=== PATIENT | male | born 1965 | race Caucasian/White ===

== ENCOUNTER 2016-02-26 18:52 | Inpatient (IN) | payer MEDICARE, MEDICAID ==
[2016-02-26] MEDS ORDERED: IPRATROPIUM/ALBUTEROL 3 ML VIAL NEB ONE ×2 (19:21→20:32)
--- NOTE | 2016-02-26 19:57 | RAD ---
EXAM DESCRIPTION: XR CHEST 1 VIEW CLINICAL HISTORY: chest pain/sob COMPARISON: May 14, 2015. FINDINGS: Cardiac silhouette is within normal limits. EKG leads project over the chest. Mild peribronchial cuffing, similar findings were noted in the prior exam. There is no focal parenchymal or pleural disease. There is no acute osseous process visualized. IMPRESSION: Mild peribronchial cuffing could be secondary to reactive airway disease/ bronchitis changes of unknown chronicity. Please correlate. Electronically signed by: David Gupta 02/26/2016 19:54
[2016-02-26] MEDS ORDERED: methylPREDNISolone SODIUM SUC 125 MG/2 ML VIAL IV ONE (20:09)
[2016-02-26] MEDS ORDERED: MORPHINE SULFATE INJ 10 MG/ML VIAL IV ONE (21:49)
[2016-02-26] MEDS ORDERED: diphenhydrAMINE HCL 50 MG/ML VIAL IV ONE (21:50)
--- NOTE | 2016-02-26 23:39 | ED.PDOC ---
History of Present Illness - General Chief Complaint: Chest Pain/HI Stated Complaint: chest pain due to cough Time Seen by Provider: 02/26/16 19:20 Source: patient, RN notes reviewed, Vital Signs reviewed Exam Limitations: no limitations - History of Present Illness Initial Comments: Patient is a 50 y/o male who has had increasing shortness of breath over the past 2 weeks. He has been seen by his PCP and in the ED about 4 times during this time. He has been on antibiotics since seeing his PCP. His chest pain started today. It worsens with inspiration, especially deep breaths. It is a sharp pain that is worse in the epigastric area and goes across his lower chest. He denies any nausea or diaphoresis. He has dizziness and severe anxiety. Today, he started feeling numbness in his left arm which scared him and he decided to come in to the ED. Timing/Duration: getting worse, other - 2 weeks Severity/Quality: severe, sharp Location: epigastric Chest Pain Radiation: arms Activities at Onset: none Prior Chest Pain/Cardiac Workup: heart attack Improving Factors: nothing Worsening Factors: other - inspiration Nitro Today/Relief: no nitro taken today Aspirin Treatment Today: no aspirin today Associated Symptoms: shortness of breath Allergies/Adverse Reactions: Allergies Sulfamethoxazole w/Trimethoprim [From Bactrim] Allergy (Verified 07/20/15 21:44) Tramadol Allergy (Verified 07/20/15 21:44) Penicillin G Adverse Reaction (Verified 07/20/15 21:44) Sulfa Antibiotics Adverse Reaction (Verified 07/20/15 21:44) Home Medications: Ambulatory Orders Lisinopril 10 mg PO DAILY 01/05/15 Metformin HCl 1,000 mg PO BID 01/05/15 Metoprolol Tartrate 25 mg PO BID 01/05/15 Aspirin [Baby Aspirin] 81 mg PO DAILY 02/25/15 Insulin Detemir [Levemir] 40 unit SUBCU BID 02/25/15 Benzonatate Perles [Tessalon Perles] 100 mg PO Q8HR #30 cap 02/25/16 HYDROcodone 5MG/APAP 325MG [[place] 5/325] 02/25/16 Atorvastatin Calcium [Lipitor] 20 mg PO DAILY 02/26/16 Azithromycin 250 mg PO DAILY 02/26/16 Review of Systems - Review of Systems Constitutional: States: weakness EENTM: States: no symptoms reported Respiratory: States: cough, orthopnea, short of breath, wheezing Cardiology: States: chest pain Gastrointestinal/Abdominal: States: no symptoms reported Genitourinary: States: no symptoms reported Musculoskeletal: States: no symptoms reported Skin: States: no symptoms reported Neurological: States: anxiety, numbness, tingling Endocrine: States: no symptoms reported Hematologic/Lymphatic: States: no symptoms reported Past Medical History (General) - Patient Medical History Hx Seizures: No Hx Stroke: No Hx Dementia: No Hx Asthma: No Hx of COPD: Yes Hx Cardiac Disorders: Yes - HI x 2; cardiac stent 2014 Hx Congestive Heart Failure: No Hx Pacemaker: No Hx Hypertension: Yes Hx Thyroid Disease: No Hx Diabetes: Yes Hx Gastroesophageal Reflux: No Hx Renal Disease: No Hx Cancer: No Hx of HIV: No Hx Hepatitis C: No Hx MRSA: No - Vaccination History Hx Tetanus, Diphtheria Vaccination: Yes Hx Influenza Vaccination: Yes - 2015 Hx Pneumococcal Vaccination: Yes - 2016 - Social History Hx Tobacco Use: Yes Hx Chewing Tobacco Use: No Hx Alcohol Use: Yes Hx Substance Use: No Hx Substance Use Treatment: No Hx Depression: No Hx Physical Abuse: No Hx Emotional Abuse: No Hx Suspected Abuse: No Family Medical History - Family History Father Family History: Unknown Living Status: Unknown Physical Exam - Physical Exam General Appearance: Alert, Anxious, Obvious distress, Obese, Restless Eyes, Ears, Nose, Throat Exam: normal ENT inspection Respiratory: chest non-tender, rhonchi, wheezing Cardiovascular/Chest: regular rate, rhythm, no gallop, no murmur Gastrointestinal/Abdominal: normal bowel sounds, non tender, soft, no organomegaly Extremity: normal range of motion Neurologic: alert, oriented x 3 Skin Exam: normal color, warm/dry Progress - Progress Progress: 02/26/16 23:44 Although Patient's chest pain and shortness of breath subsided, he was unable to maintain his oxygen saturation above 90% without oxygen. Patient has sleep apnea and has had his sleep studies, and is currently waiting for his cpap machine, which he does not have. When sitting on the edge of the bed talking, he talks in short sentences and takes deep breaths between them. After his DuoNeb and the solumedrol, Patient's lungs have increased air movement with less wheezing and rhonchi. - Results/Orders Results/Orders: 12/02/26/16 02/26/16 19:18 19:22 20:08 Temperature 99.1 F Pulse Rate 105 H 95 H Pulse Rate [ 105 H 105 H 102 H left] Respiratory 22 22 22 Rate Blood Pressure 142/113 135/73 [left] O2 Sat by Pulse 95 94 L Oximetry 02/26/16 02/26/16 02/26/16 20:47 21:25 22:15 Temperature 98.9 F Pulse Rate 95 H 95 H 95 H Pulse Rate [ 83 83 left] Respiratory 22 22 22 Rate Blood Pressure 136/73 157/97 [left] O2 Sat by Pulse 93 L 94 L 93 L Oximetry 02/26/16 23:41 Temperature 98.9 F Pulse Rate 95 H Pulse Rate [ 88 left] Respiratory 22 Rate Blood Pressure 149/87 [left] O2 Sat by Pulse 90 L Oximetry Laboratory Results WBC 6.0 K/mm3 (4.8-10.8) 02/26/16 19: RBC 4.79 M/mm3 (4.70-6.10) 02/26/16 19:29 Hgb 13.9 gm/dL (14.0-18.0) L 02/26/16 19:29 Hct 41.9 % (42.0-52.0) L 02/26/16 19:29 MCV 87.3 fl (80.0-94.0) 02/26/16 19: MCH 29.0 pg (27.0-31.0) 02/26/16 19: MCHC 33.1 g/dL (33.0-37.0) 02/26/16 19: RDW 14.1 % (11.5-14.5) 02/26/16 19:29 Plt Count 224 K/mm3 (130-400) 02/26/16 19:29 MPV 9.7 fl (7.40-10.4) 02/26/16 19:29 Absolute Neuts (auto) 3.20 K/uL (1.8-6.8) 02/26/16 19:29 Absolute Lymphs (auto) 2.10 K/uL (1.0-3.4) 02/26/16 19: Absolute Monos (auto) 0.60 K/uL (0.2-0.8) 02/26/16 19:29 Absolute Eos (auto) 0.10 K/uL (0.0-0.4) 02/26/16 19:29 Absolute Basos (auto) 0.00 K/uL (0.0-0.1) 02/26/16 19:29 Neutrophils % 53.8 % (42.0-78.0) 02/26/16 19:29 Lymphocytes % 34.6 % (20.0-50.0) 02/26/16 19: Monocytes % 10.4 % (2.0-9.0) H 02/26/16 19: Eosinophils % 1.1 % (1.0-5.0) 02/26/16 19: Basophils % 0.1 % (0.0-2.0) 02/26/16 19:29 Differential Comment Cancelled 02/26/16 19:29 RBC Morphology Cancelled 02/26/16 19:29 PT 10.4 SECONDS (9.4-12.5) 02/26/16 19:29 INR 0.920 02/26/16 19:29 PTT (SP) 31.8 SECONDS (25.1-36.5) 02/26/16 19:29 D-Dimer, Quantitative < 230 ng/mL (0-230) 02/26/16 19:29 Sodium 134 mmol/L (135-145) L 02/26/16 19:29 Potassium 4.2 mmol/L (3.6-5.0) 02/26/16 19:29 Chloride 99 mmol/L (101-111) L 02/26/16 19:29 Carbon Dioxide 31 mmol/L (21-31) 02/26/16 19:29 Anion Gap 8.2 (12-18) L 02/26/16 19:29 BUN 13 mg/dL (7-18) 02/26/16 19:29 Creatinine 0.88 mg/dL (0.6-1.3) 02/26/16 19:29 BUN/Creatinine Ratio 14.8 (10-20) 02/26/16 19:29 Random Glucose 261 mg/dL (70-105) H 02/26/16 19:29 Serum Osmolality 277.4 mOsm/L (275-295) 02/26/16 19:29 Calcium 8.7 mg/dL (8.4-10.2) 02/26/16 19:29 Magnesium 2.0 mg/dL (1.8-2.5) 02/26/16 19:29 Total Bilirubin 0.4 mg/dL (0.2-1.0) 02/26/16 19:29 AST 23 IU/L (10-42) 02/26/16 19:29 ALT 29 IU/L (10-60) 02/26/16 19:29 Alkaline Phosphatase 118 IU/L (42-121) 02/26/16 19:29 Creatine Kinase 140 IU/L (38-174) 02/26/16 19:29 CK-MB (CK-2) 3.2 ng/mL (0.0-4.4) 02/26/16 19:29 CK-MB (CK-2) % Not Reportable 02/26/16 19:29 Troponin I < 0.02 ng/mL (0.01-0.05) 02/26/16 19: B-Natriuretic Peptide 32.7 pg/ml (0-100) 02/26/16 19:29 Serum Total Protein 7.0 gm/dL (6.4-8.2) 02/26/16 19:29 Albumin 3.7 g/dl (3.2-5.5) 02/26/16 19: Globulin 3.3 gm/dL (2.3-3.5) 02/26/16 19:29 Albumin/Globulin Ratio 1.1 (1.1-1.9) 02/26/16 19:29 Urine Color Yellow (Yellow) 02/26/16 20:30 Urine Appearance Clear (Clear) 02/26/16 20:30 Urine pH 5.5 (4.5-7.8) 02/26/16 20:30 Ur Specific [place] 1.015 (1.005-1.030) 02/26/16 20:30 Urine Protein Negative mg/dL 02/26/16 20:30 Urine Glucose (UA) 500 mg/dL (Negative) H 02/26/16 20:30 Urine Ketones Negative mg/dL (NEGATIVE) 02/26/16 20:30 Urine Blood Negative (Negative) 02/26/16 20:30 Urine Nitrite Negative 02/26/16 20:30 Urine Bilirubin Negative (NEGATIVE) 02/26/16 20:30 Urine Urobilinogen 0.2 mg/dL (0.2-1.0) 02/26/16 20:30 Ur Leukocyte Esterase Negative (Negative) 02/26/16 20:30 Urine RBC 0 /hpf 02/26/16 20:30 Urine WBC 0-1 /hpf 02/26/16 20:30 Ur Epithelial Cells 5-10 /hpf 02/26/16 20:30 Urine Bacteria 0 02/26/16 20:30 - EKG/XRAY/CT EKG: Sinus, Tachy, no ST T wave changes Comments: Rate: 104 [place] NML Intervals: NML PVCs No comp Inter: Sinus tach with PVCs XRAY: chest Xray Comments: No acute process Departure - Departure Clinical Impression: COPD exacerbation, Hypoxemia requiring supplemental oxygen Acute bronchitis Qualifiers: Bronchitis organism: unspecified organism Qualifier Code: (J20.9) Acute bronchitis, unspecified Time of Disposition: 23:49 Disposition: Admit Patient Condition: Good Diet: diabetic diet Home Medications: Ambulatory Orders Lisinopril 10 mg PO DAILY 01/05/15 Metformin HCl 1,000 mg PO BID 01/05/15 Metoprolol Tartrate 25 mg PO BID 01/05/15 Aspirin [Baby Aspirin] 81 mg PO DAILY 02/25/15 Insulin Detemir [Levemir] 40 unit SUBCU BID 02/25/15 Benzonatate Perles [Tessalon Perles] 100 mg PO Q8HR #30 cap 02/25/16 HYDROcodone 5MG/APAP 325MG [[place] 5/325] 02/25/16 Atorvastatin Calcium [Lipitor] 20 mg PO DAILY 02/26/16 Azithromycin 250 mg PO DAILY 02/26/16 Decision To Admit - Decistion To Admit Decision to Admit Reason: Admit from ER Decision to Admit Date: 02/26/16 Decision to Admit Time: 23:30
[2016-02-26] MEDS ORDERED: IV SET AND CAP CHANGE INJ INJ SCH ×2 (23:45)
[2016-02-26] MEDS ORDERED: SODIUM CHLORIDE 0.9% (FLUSH) 10 ML SYG IV PRN ×2 (23:53→23:57)
[2016-02-26] MEDS ORDERED: LORazepam 0.5 MG TAB PO ONE (23:54)
[2016-02-26] MEDS ORDERED: DEXTROSE 50% 25 GM/50 ML SYG IV PRN (23:57)
[2016-02-26] MEDS ORDERED: MAGNESIUM HYDROXIDE 30 ML UD PO PRN (23:57)
[2016-02-26] MEDS ORDERED: LEVALBUTEROL NEBS 1.25 MG/3 ML VIAL INH PRN (23:57)
[2016-02-26] MEDS ORDERED: GLUCAGON INJ 1 MG VIAL SUBCU PRN (23:57)
[2016-02-27] MEDS ORDERED: BENZONATATE PERLES 100 MG CAP PO PRN (00:09)
--- NOTE | 2016-02-27 00:10 | PCM.CORE ---
Physician DVT/VTE - Prophylaxis Currently: Patient already on anticoagulation therapy
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
[2016-02-27] MEDS ORDERED: ENOXAPARIN SODIUM 40 MG/0.4 ML SYG SUBCU SCH (00:30)
[2016-02-27] MEDS: SODIUM CHLORIDE 0.9% 1000ML 1,000 ML IVS PRN ×2 (00:55→11:11)
[2016-02-27] MEDS ORDERED: NICOTINE PATCH 14 MG TD SCH (03:00)
[2016-02-27] MEDS: OMEPRAZOLE CAP 20 MG CAP PO SCH (06:21)
[2016-02-27] MEDS: IPRATROPIUM/ALBUTEROL 3 ML VIAL INH SCH ×2 (07:22→07:23)
[2016-02-27] MEDS: HYDROcodone 5MG/APAP 325MG 1 EA TAB PO PRN ×2 (07:34→23:25)
[2016-02-27] MEDS: LORazepam 0.5 MG TAB PO PRN ×2 (07:35→22:16)
[2016-02-27] MEDS ORDERED: LISINOPRIL 10 MG TAB ONE (07:56)
[2016-02-27] MEDS ORDERED: metFORMIN HCL 500 MG TAB ONE (07:56)
[2016-02-27] MEDS ORDERED: AZITHROMYCIN 250 MG TAB PO ONE (07:56)
[2016-02-27] MEDS ORDERED: methylPREDNISolone SODIUM SUC 40 MG/ML VIAL ONE (07:56)
[2016-02-27] MEDS ORDERED: INSULIN DETEMIR 100 UNITS/ML PEN SUBCU ONE (07:56)
[2016-02-27] MEDS ORDERED: METOPROLOL TARTRATE 25 MG TAB ONE (07:56)
[2016-02-27] MEDS ORDERED: INSULIN LISPRO 100 UNITS/ML PEN SUBCU ONE (08:03)
[2016-02-27] MEDS: INSULIN LISPRO 100 UNITS/ML PEN SUBCU SCH ×4 (08:13→21:20)
[2016-02-27] MEDS: metFORMIN HCL 500 MG TAB PO SCH ×2 (08:15→16:38)
[2016-02-27] MEDS: LISINOPRIL 10 MG TAB PO SCH (08:16)
[2016-02-27] MEDS: METOPROLOL TARTRATE 25 MG TAB PO SCH ×2 (08:16→16:38)
[2016-02-27] MEDS: AZITHROMYCIN 250 MG TAB PO SCH (08:16)
[2016-02-27] MEDS: methylPREDNISolone SODIUM SUC 40 MG/ML VIAL IV SCH ×2 (08:17→20:45)
[2016-02-27] MEDS: INSULIN DETEMIR 100 UNITS/ML PEN SUBCU SCH ×2 (08:17→21:20)
[2016-02-27] MEDS: guaiFENesin ER TAB 600 MG TAB PO SCH ×2 (10:23→20:44)
[2016-02-27] MEDS: LEVALBUTEROL NEBS 1.25 MG/3 ML VIAL NEB SCH ×2 (12:56→16:37)
[2016-02-27] MEDS ORDERED: SODIUM CHL 0.9% 50ML MIN-BAG+ 50 ML IVPB ONE (20:15)
[2016-02-27] MEDS ORDERED: cefTRIAXone SODIUM 1 GM VIAL ONE (20:15)
[2016-02-27] MEDS: cefTRIAXone SODIUM 1 GM in SODIUM CHL 0.9% 50ML MIN-BAG+ 50 ML IVPB SCH (20:41)
[2016-02-27] MEDS: SODIUM CHLORIDE 0.9% (FLUSH) 10 ML SYG IV SCH (20:44)
[2016-02-27] MEDS ORDERED: METOPROLOL TARTRATE INJ 5 MG/5 ML VIAL IV ONE (22:33)
[2016-02-27] MEDS ORDERED: cloNIDine HCL 0.2 MG TAB PO ONE (22:34)
[2016-02-27] MEDS ORDERED: NICOTINE PATCH 14 MG TD ONE (23:06)
[2016-02-27] MEDS: NICOTINE PATCH 14 MG TD SCH (23:08)
[2016-02-27] MEDS: diphenhydrAMINE HCL 25 MG CAP PO PRN (23:25)
[2016-02-28] MEDS: OMEPRAZOLE CAP 20 MG CAP PO SCH (06:06)
--- NOTE | 2016-02-28 06:49 | RAD ---
EXAM DESCRIPTION: XR CHEST 2 VIEWS CLINICAL HISTORY: 50 y/o M, copd COMPARISON: 02/26/2016 TECHNIQUE: Two views of the chest. FINDINGS: There is mild peribronchial thickening. There is no focal consolidation, pneumothorax, or pleural effusion. The heart is normal in size. The bones are unchanged. IMPRESSION: Mild peribronchial thickening. Electronically signed by: Fran Cota MD 02/28/2016 06:47
[2016-02-28] MEDS: INSULIN LISPRO 100 UNITS/ML PEN SUBCU SCH ×6 (07:40→21:16)
[2016-02-28] MEDS: METOPROLOL TARTRATE 25 MG TAB PO SCH ×2 (07:41→16:51)
[2016-02-28] MEDS: metFORMIN HCL 500 MG TAB PO SCH ×2 (07:41→16:51)
[2016-02-28] MEDS: LEVALBUTEROL NEBS 1.25 MG/3 ML VIAL NEB SCH ×3 (08:50→23:42)
[2016-02-28] MEDS: NICOTINE PATCH 14 MG TD SCH (09:26)
[2016-02-28] MEDS: INSULIN DETEMIR 100 UNITS/ML PEN SUBCU SCH ×2 (09:26→21:15)
[2016-02-28] MEDS: guaiFENesin ER TAB 600 MG TAB PO SCH ×2 (09:27→21:11)
[2016-02-28] MEDS: methylPREDNISolone SODIUM SUC 40 MG/ML VIAL IV SCH ×2 (09:27→21:16)
[2016-02-28] MEDS: ENOXAPARIN SODIUM 40 MG/0.4 ML SYG SUBCU SCH (09:27)
[2016-02-28] MEDS: LISINOPRIL 10 MG TAB PO SCH (09:28)
[2016-02-28] MEDS: AZITHROMYCIN 250 MG TAB PO SCH (09:28)
[2016-02-28] MEDS: SODIUM CHLORIDE 0.9% (FLUSH) 10 ML SYG IV SCH ×2 (09:28→21:17)
[2016-02-28] MEDS: HYDROcodone 5MG/APAP 325MG 1 EA TAB PO PRN (12:50)
--- NOTE | 2016-02-28 19:43 | PN ---
DATE: 02/28/16 SUPERVISING PHYSICIAN: Madan Morillo M.D. SUBJECTIVE: The patient has done better since he has been utilizing BiPAP at night. He actually was able to sleep through the night. I was notified that his pressure was elevated and he was running a temperature of 102 last night, therefore I added additional coverage with Rocephin as well as provided blood pressure control with Clonidine and an additional dose of Metoprolol IV. This morning, he is much less anxious and blood pressure seems to be better controlled. He has been actually ambulating with minimal assistance with ambulation studies shown to be good with initial O2 sat on the first one showing 94% on 2 liters during ambulation on room air decreased to 92 and rebounded to 95% after 1 minute with 2 liters nasal cannula. OBJECTIVE: VITAL SIGNS: T max 102.0, pulse 102, blood pressure 174/118 prior to administration of Clonidine and Toprol after which blood pressure improved to 138/84 with pulse of 85. He is satting 92% on nasal cannula at rest with improvement up to 97% with BiPAP at night. I's and O's show a negative balance of 151 with 3249 in, 3400 out. Weight is 135.1 kg. CHEST: Lungs are much more aerated today compared to previous days. There is no obvious wheezing. He does continue to have a cough and is awaiting sputum for culture. HEART: Regular rate and rhythm. ABDOMEN: Obese but soft, non-tender. Positive bowel sounds. EXTREMITIES: No clubbing, cyanosis or edema. NEUROLOGIC: He is alert and oriented times three but remains quite anxious at times requiring Ativan. LABORATORY: White count is now 13.0, however the patient is on IV Solu-Medrol, but in addition to that he did show a temperature last night of 102. H&H remain stable at 13.4 and 40.4. Differential does continue to show a left shift. Chemistries show low sodium of 134 with potassium being normal at 4.5, BUN 19, creatinine 0.7. Glucoses continue to be elevated in the 300s probably secondary to Solu-Medrol. MICROBIOLOGY: No specimens have been submitted for culture. If he continues to show a temperature, will certainly draw a set of blood cultures and we are still awaiting the sputum culture. RADIOLOGY: Chest x-ray per radiology interpretation today shows mild peribronchial thickening with no focal consolidations or pleural effusions. ASSESSMENT: 1. Acute exacerbation of chronic obstructive pulmonary disease with acute bronchitis having failed to respond to outpatient treatment plan now showing a temperature with concerns for possible underlying pneumonia is likely community acquired requiring additional parenteral antibiotics to include Rocephin along with Azithromycin. 2. History of sleep apnea requiring CPAP at home awaiting CPAP machine from [facility] with current prescription noted to be in the patient's clinic chart written by Dr. Torres on 07/30/15. 3. Hypertension poorly controlled requiring additional management with p.r.n. medications. 4. Type 2 diabetes mellitus poorly controlled with continued need for adjustment of insulin therapy likely contributed to some degree from steroid administration. 5. History of lumbar disc disease, chronic, stable. 6. Morbid obesity. 7. History of tobacco abuse encouraged to stop smoking. 8. Mild hyponatremia persistent likely secondary to underlying bronchitis possibly developing pneumonia. 9. Mild hypoxemia requiring continued O2 at night as he does wear some oxygen at home and does well with BiPAP. PLAN: The patient did show a temperature last night and he was started on additional antibiotics with concerns for possible underlying developing pneumonia. He is doing well with his BiPAP and Ativan is working well for his anxiety. We need continuation of modification of his medications in regard to hypertension with p.r.n. Clonidine has worked well as well as his acute anxiety state contributing to some of his hypertension controlled with Ativan p.r.n. Anticipate possible discharge tomorrow, however the patient does need close followup and guidance in regards to followup with his prescriptions for his CPAP /BiPAP at night. This again has been arranged through Dr. Torres' office with a prescription written on 07/30/15 supposedly sent to [facility] and will need to be followed-up with prior to time of discharge or shortly after discharge to assist the patient with securing a BiPAP. Anticipate maybe discharging tomorrow. Until then, will continue to monitor the patient closely and treat appropriately. #[id number] [facility]
[2016-02-28] MEDS ORDERED: cefTRIAXone SODIUM 1 GM VIAL ONE (19:46)
[2016-02-28] MEDS ORDERED: SODIUM CHL 0.9% 50ML MIN-BAG+ 50 ML IVPB ONE (19:46)
[2016-02-28] MEDS: cefTRIAXone SODIUM 1 GM in SODIUM CHL 0.9% 50ML MIN-BAG+ 50 ML IVPB SCH (20:06)
[2016-02-29] MEDS: diphenhydrAMINE HCL 25 MG CAP PO PRN (00:36)
[2016-02-29] MEDS: HYDROcodone 5MG/APAP 325MG 1 EA TAB PO PRN (00:37)
[2016-02-29] MEDS: LORazepam 0.5 MG TAB PO PRN (00:37)
[2016-02-29] MEDS: OMEPRAZOLE CAP 20 MG CAP PO SCH (06:07)
[2016-02-29] MEDS: INSULIN LISPRO 100 UNITS/ML PEN SUBCU SCH ×4 (07:25→11:39)
[2016-02-29] MEDS: METOPROLOL TARTRATE 25 MG TAB PO SCH (07:40)
[2016-02-29] MEDS: metFORMIN HCL 500 MG TAB PO SCH (07:40)
[2016-02-29] MEDS: LEVALBUTEROL NEBS 1.25 MG/3 ML VIAL NEB SCH (08:42)
[2016-02-29] MEDS: NICOTINE PATCH 14 MG TD SCH (08:42)
[2016-02-29] MEDS: INSULIN DETEMIR 100 UNITS/ML PEN SUBCU SCH (08:43)
[2016-02-29] MEDS: LISINOPRIL 10 MG TAB PO SCH (08:43)
[2016-02-29] MEDS: AZITHROMYCIN 250 MG TAB PO SCH (08:43)
[2016-02-29] MEDS: guaiFENesin ER TAB 600 MG TAB PO SCH (08:43)
[2016-02-29] MEDS: ENOXAPARIN SODIUM 40 MG/0.4 ML SYG SUBCU SCH (08:43)
[2016-02-29] MEDS: methylPREDNISolone SODIUM SUC 40 MG/ML VIAL IV SCH (08:44)
[2016-02-29] MEDS: SODIUM CHLORIDE 0.9% (FLUSH) 10 ML SYG IV SCH (08:44)
[2016-02-29 14:06] VITALS: BP 164/99; TEMP 98.6; O2SAT 94
--- NOTE | 2016-02-29 19:42 | DS ---
DISCHARGE DIAGNOSIS: 1. Chronic obstructive pulmonary disease with an acute exacerbation requiring corticosteroid as well as bronchodilator, pulmonary hygiene and antibiotic use. 2. History of sleep apnea requiring BiPAP with him unable to acquire the BiPAP machine until hopefully they will be able to work on it this next week with followup with Dr. Torres. 3. Hypertension poorly controlled requiring additional medications as needed. 4. Chronic diabetes mellitus type 2 on adjustments of insulin to assist with control with sugar aggravated by corticosteroid administration. 5. History of lumbar disc disease, chronic and stable. 6. Obesity. 7. History of chronic tobacco abuse encouraged to stop completely. 8. Mild hyponatremia. 9. Mild hypoxemia requiring O2 at night with BiPAP supplementation to assist with the work of breathing showing some steady improvement. HISTORY OF PRESENT ILLNESS: This 50 year-old white male is admitted to the hospital from the Emergency Room because of worsening shortness of breath over the last 2 weeks. He has seen Dr. Torres and has been in the Emergency Room at least 4 times in the last couple of weeks, and has failed outpatient therapy. He has been on Azithromycin without significant improvement. He was admitted to the hospital with pain in his epigastric region and generalized malaise. In the Emergency Room, his sodium was low at 132. It was noted that he has had a previous diagnosis of sleep apnea for which a BiPAP machine has been ordered but he has not received it during the last 5 months. He was continued on medication nebulizers, bronchodilators, corticosteroids and had to have his insulin adjusted several times because of hyperglycemic states. LABORATORY: Sodium 134 up to 136 at discharge. BUN 18, creatinine 0.85. Fasting glucose was elevated at 394 on the day of discharge requiring ongoing sliding scale insulin. White count 14,200 with 83% neutrophils, hemoglobin 13.2. INR 0.92, D-dimer low. Urinalysis showed glycosuria, otherwise clear. No cultures. Chest x-ray showed continued findings of peribronchial thickening suggesting a bronchitic COPD pattern requiring ongoing followup as needed. HOSPITAL COURSE: The patient was feeling improved and was ambulating without oxygen on the day of discharge. He was ready and willing to continue with outpatient followup with Dr. Torres' office. PLAN: The patient will be discharged home to see Dr. Torres this next Tuesday. Close followup of blood pressure and glucose as necessary with advice from Dr. Torres on how to best mange the sugar and the blood pressure. We are decreasing his corticosteroids which will hopefully help with some of the glucose level control. See the GI clinic next Tuesday as well for anticipated colonoscopy. Work with [facility] to acquire BiPAP unit for home use. Discussed with them today. Continue with medication nebulizers. Stop all smoking. Use a nicotine patch to help stop smoking. Walk daily. Avoid chills when wet and return to work on , 03/04/16. Return if not improving. #[id number] [facility]
== END 2016-02-29 15:45 | disposition home or self-care (01) | DRG 190 ==
LOC: ER 18:52 → MS 02-27 00:15 → OBSVTOIN 02-27 00:15
PROVIDERS: ADMIT Emergency Medicine; ATTEND Emergency Medicine
DX: J44.0 Chronic obstructive pulmonary disease with (acute) lower respiratory infection (principal); J18.9 Pneumonia, unspecified organism; E87.1 Hypo-osmolality and hyponatremia; J44.1 Chronic obstructive pulmonary disease with (acute) exacerbation; R09.02 Hypoxemia; J20.9 Acute bronchitis, unspecified; G47.30 Sleep apnea, unspecified; I10 Essential (primary) hypertension; E11.65 Type 2 diabetes mellitus with hyperglycemia; F17.210 Nicotine dependence, cigarettes, uncomplicated; E66.01 Morbid (severe) obesity due to excess calories; I25.2 Old myocardial infarction; T38.0X5A Adverse effect of glucocorticoids and synthetic analogues, initial encounter; Y92.230 Patient room in hospital as the place of occurrence of the external cause; Z87.820 Personal history of traumatic brain injury; Z88.3 Allergy status to other anti-infective agents; Z88.6 Allergy status to analgesic agent; Z88.0 Allergy status to penicillin; Z68.39 Body mass index [BMI] 39.0-39.9, adult

== ENCOUNTER 2017-01-31 19:58 | Inpatient (IN) | payer MEDICARE, MEDICAID ==
[2017-01-31] MEDS ORDERED: IPRATROPIUM/ALBUTEROL 3 ML VIAL NEB ONE (20:11)
[2017-01-31] MEDS ORDERED: methylPREDNISolone SODIUM SUC 125 MG/2 ML VIAL IV ONE (20:11)
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
--- NOTE | 2017-01-31 22:12 | RAD ---
EXAM DESCRIPTION: Chest,1 View CLINICAL HISTORY: SOB COMPARISON: None FINDINGS: Cardiac silhouette is within normal limits. EKG leads project over the chest. There is no focal parenchymal or pleural disease. There is no acute osseous process visualized. IMPRESSION: No evidence of acute cardiopulmonary disease. Electronically signed by: David Gupta MD 01/31/2017 10:11 PM [facility]
[2017-01-31] MEDS ORDERED: AZITHROMYCIN IV 500 MG in SODIUM CHLORIDE 0.9% 250ML 250 ML IVPB ONE (22:24)
[2017-01-31] MEDS ORDERED: cefTRIAXone SODIUM 1 GM in SODIUM CHL 0.9% 50ML MIN-BAG+ 50 ML IVPB ONE (22:24)
[2017-01-31] MEDS ORDERED: AZITHROMYCIN IV 500 MG VIAL IVPB ONE (22:58)
[2017-01-31] MEDS ORDERED: cefTRIAXone SODIUM 1 GM VIAL ONE (22:58)
[2017-01-31] MEDS ORDERED: SODIUM CHL 0.9% 50ML MIN-BAG+ 50 ML IVPB ONE (22:58)
[2017-01-31] MEDS ORDERED: SODIUM CHLORIDE 0.9% 250ML 250 ML ONE (22:59)
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
[2017-01-31] MEDS ORDERED: cefTRIAXone SODIUM 2 GM in SODIUM CHL 0.9% 50ML MIN-BAG+ 50 ML IVPB SCH ×4 (23:45)
[2017-01-31] MEDS ORDERED: GLUCAGON INJ 1 MG VIAL SUBCU PRN (23:55)
[2017-01-31] MEDS ORDERED: DEXTROSE 50% 25 GM/50 ML SYG IV PRN (23:55)
[2017-02-01] MEDS: AZITHROMYCIN IV 500 MG in SODIUM CHLORIDE 0.9% 250ML 250 ML IVPB SCH (00:29)
[2017-02-01] MEDS: ALBUTEROL SULFATE 2.5 MG/3 ML VIAL NEB PRN ×2 (01:00→04:35)
[2017-02-01] MEDS: IV SET AND CAP CHANGE INJ INJ SCH (01:04)
[2017-02-01] MEDS ORDERED: SODIUM CHL 0.9% 50ML MIN-BAG+ 50 ML IVPB ONE ×2 (02:08→22:36)
[2017-02-01] MEDS ORDERED: cefTRIAXone SODIUM 1 GM VIAL ONE ×2 (02:08→22:36)
[2017-02-01] MEDS: ACETAMINOPHEN 325 MG TAB PO PRN ×4 (02:12→20:02)
[2017-02-01] MEDS: SODIUM CHLORIDE 0.9% (FLUSH) 10 ML SYG IV PRN ×2 (02:12→20:10)
[2017-02-01] MEDS: methylPREDNISolone SODIUM SUC 125 MG/2 ML VIAL IV SCH ×4 (02:13→20:11)
[2017-02-01] MEDS ORDERED: cefTRIAXone SODIUM 1 GM in SODIUM CHL 0.9% 50ML MIN-BAG+ 50 ML IVPB ONE (02:25)
[2017-02-01] MEDS ORDERED: ALPRAZolam 0.25 MG TAB PO ONE (03:27)
[2017-02-01] MEDS ORDERED: NICOTINE PATCH 14 MG TD SCH (03:30)
--- NOTE | 2017-02-01 07:04 | RAD ---
EXAM: Two view chest. INDICATION: Pneumonia. COMPARISON: Chest x-ray: 01/31/2017. FINDINGS: Cardiac silhouette: Unremarkable. Indu: Unremarkable. Lobar consolidation: None. Pleural effusion: None. Pneumothorax: None. Other: None. Bones: Unremarkable. Other: None. IMPRESSION: 1. No acute cardiopulmonary process. Electronically signed by: Fran Cota MD 02/01/2017 7:03 AM [facility] Workstation: [id number]
[2017-02-01] MEDS: INSULIN LISPRO 100 UNITS/ML PEN SUBCU SCH ×7 (07:43→21:23)
[2017-02-01] MEDS: KCL 20 MEQ/NS 1,000 ML IVS PRN ×2 (07:45→20:02)
[2017-02-01] MEDS: IPRATROPIUM/ALBUTEROL 3 ML VIAL INH SCH ×4 (08:00→20:55)
[2017-02-01] MEDS: INSULIN DETEMIR 100 UNITS/ML PEN SUBCU SCH ×2 (08:45→21:24)
[2017-02-01] MEDS ORDERED: metFORMIN HCL 500 MG TAB ONE (14:08)
[2017-02-01] MEDS ORDERED: glipiZIDE 5 MG TAB ONE (14:08)
[2017-02-01] MEDS ORDERED: MORPHINE SULFATE INJ 10 MG/ML VIAL IV ONE (14:22)
[2017-02-01] MEDS: metFORMIN HCL 500 MG TAB PO SCH (16:39)
[2017-02-01] MEDS: glipiZIDE 5 MG TAB PO SCH (16:39)
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
[2017-02-01] MEDS ORDERED: ENOXAPARIN SODIUM 40 MG/0.4 ML SYG SUBCU SCH (19:30)
--- NOTE | 2017-02-01 19:36 | PN ---
SUPERVISING PHYSICIAN: Madan Morillo MD DATE: 02/01/17 SUBJECTIVE: The patient this morning was having some mild respiratory distress continued and unable to maintain O2 saturations above 85% on a Ventimask. I saw the patient at that time. He was in no significant distress, but was showing much improvement after he was placed on BiPAP, which he was tolerating. He was complaining of chest discomfort with a cough, but no actual chest pains. He is afebrile with T-max of 99.8. He has had no nausea or vomiting. He has had to have some Ativan for some anxiety which he has responded well to. OBJECTIVE: VITAL SIGNS: T-max 99.8. Pulse 106. Respirations 20 to 24 on nasal cannula. Saturation 90% on a Ventimask at 8 liters at 40%. After placement on BiPAP, he was maintaining 92% to 94% on 50% FIO2. Weight 140.8 kg. CHEST: Lung sounds significantly diminished with some inspiratory and expiratory wheezing. No rhonchi or rales noted. HEART: Regular rate and rhythm. ABDOMEN: Obese, but soft and nontender. Positive bowel sounds. EXTREMITIES: No cyanosis, clubbing or edema. NEUROLOGIC: Alert and oriented times three. LABORATORY: CBC this morning continues to show leukocytosis at 12,700, hemoglobin stable at 13.3 and 40.7 with platelet count 271,000. Differential continues to show a left shift. Blood gas analysis prior to placement on BiPAP with high flow Ventimask showed pH 7.31 with PCO2 54, PO2 46, saturation 77%. After 30 minutes on BiPAP at 50% FIO2, his pH was 7.33, PCO2 53, PCO2 up to 61, saturation 92%. Chemistries showed mild hyponatremia with sodium 134, BUN 14, creatinine 0.93, glucose elevated at 332 secondary to corticosteroid administration. Cardiac enzymes showed troponin less than 0.02, BNP 35. Blood sugars have shown continued elevation between 217 and 332. MICROBIOLOGY: Blood cultures remain negative at 24 hours. Strep culture is pending. RADIOLOGY: Repeat chest x-ray, two view, today per radiologic interpretation showed no acute cardiopulmonary process. ASSESSMENT: 1. Acute exacerbation of chronic obstructive pulmonary disease with concerns for developing community acquired pneumonia having failed to respond to outpatient treatment plan, requiring BIPAP assistance with persistent hypoxemia on Ventimask, showing improvement with BIPAP at 50% FIO2. 2. Respiratory acidosis with severe hypoxemia secondary to exacerbation of chronic obstructive pulmonary disease with blood gases showing improvement after initiation of BIPAP. 3. Concerns for early left lower lobe pneumonia, community acquired, requiring initiation of IV antibiotics to include Rocephin and azithromycin. 4. Chronic tobacco abuse, encouraged to stop smoking. 5. Hypertension, poorly controlled. 6. Type 2 diabetes mellitus, poorly controlled with elevation secondary to corticosteroid administration. 7. Morbid obesity with a body mass index of 41.0. 8. Leukocytosis secondary to #1, persistent with concerns for developing community acquired pneumonia, left lower lobe, requiring initiation of antibiotic therapy. 9. Elevated D-dimer with low risk factor for a pulmonary embolism with continued monitoring. 10. History of sleep apnea utilizing CPAP at night. 11. History of lumbar disc disease, chronic. PLAN: The patient will continue with aggressive pulmonary hygiene. We will continue with BiPAP and work at titrating down to nasal cannula as he shows clinical improvement. We will continue with Solu-Medrol and DuoNeb treatments along with chest percussion therapy. We will continue with his antibiotics with azithromycin and Rocephin and await sputum culture. I have added a.c. coverage for control of his sugars and resumed his metformin and will continue to monitor closely. We will anticipate at least another 24 to 48 hours requirement for continued titration of his O2 requirements. He continues to have encouragement to stop smoking with a nicotine patch. We will await sputum cultures to further target antibiotic therapy and repeat CBC and BMP as well as chest x-ray in the morning. Until the patient is clinically stable and able to bd discharged for further treatment in the outpatient setting, we will continue to monitor the patient closely and treat appropriately. #[id number] [facility]
[2017-02-01] MEDS ORDERED: NICOTINE PATCH 14 MG TD ONE (19:59)
[2017-02-01] MEDS: NICOTINE PATCH 14 MG TD SCH (20:52)
[2017-02-01] MEDS: TEMAZEPAM 15 MG CAP PO PRN (22:28)
[2017-02-01] MEDS ORDERED: SODIUM CHLORIDE 0.9% 250ML 250 ML ONE (22:35)
[2017-02-01] MEDS ORDERED: AZITHROMYCIN IV 500 MG VIAL IVPB ONE (22:36)
[2017-02-01] MEDS: cefTRIAXone SODIUM 2 GM in SODIUM CHL 0.9% 50ML MIN-BAG+ 50 ML IVPB SCH (22:48)
[2017-02-02] MEDS: SODIUM CHLORIDE 0.9% (FLUSH) 10 ML SYG IV PRN (00:03)
[2017-02-02] MEDS: AZITHROMYCIN IV 500 MG in SODIUM CHLORIDE 0.9% 250ML 250 ML IVPB SCH ×2 (00:03→23:53)
[2017-02-02] MEDS: methylPREDNISolone SODIUM SUC 125 MG/2 ML VIAL IV SCH ×3 (02:00→14:12)
[2017-02-02] MEDS: glipiZIDE 5 MG TAB PO SCH ×3 (06:39→17:08)
--- NOTE | 2017-02-02 06:54 | RAD ---
EXAM: Two view chest. INDICATION: COPD. COMPARISON: Chest x-ray: 02/01/2017. FINDINGS: Cardiac silhouette: Unremarkable. Indu: Unremarkable. Lobar consolidation: None. Pleural effusion: None. Pneumothorax: None. Other: None. Bones: Unremarkable. Other: None. IMPRESSION: 1. No acute cardiopulmonary process. Electronically signed by: Fran Cota MD 02/02/2017 6:[address] [facility] Workstation: [id number]
[2017-02-02] MEDS: INSULIN LISPRO 100 UNITS/ML PEN SUBCU SCH ×7 (07:54→21:27)
[2017-02-02] MEDS: metFORMIN HCL 500 MG TAB PO SCH ×2 (08:00→17:08)
[2017-02-02] MEDS: IPRATROPIUM/ALBUTEROL 3 ML VIAL INH SCH ×4 (08:23→19:58)
[2017-02-02] MEDS: ACETAMINOPHEN 325 MG TAB PO PRN (08:55)
[2017-02-02] MEDS ORDERED: traZODone HCL 100 MG TAB PO PRN (09:11)
[2017-02-02] MEDS ORDERED: PROPRANOLOL HCL 10 MG PO PRN (09:11)
[2017-02-02] MEDS: INSULIN DETEMIR 100 UNITS/ML PEN SUBCU SCH ×2 (09:30→21:24)
[2017-02-02] MEDS: ATORVASTATIN 20 MG TAB PO SCH (09:36)
[2017-02-02] MEDS: NON-FORMULARY MEDICATION 1 EA MIS (Sertraline Hcl [Sertraline Hcl] 100 MG) PO SCH (09:36)
[2017-02-02] MEDS: LISINOPRIL 10 MG TAB PO SCH (09:36)
[2017-02-02] MEDS: CITALOPRAM HBR 20 MG TAB PO SCH (09:36)
[2017-02-02] MEDS: ASPIRIN EC 81 MG TAB PO SCH (09:36)
[2017-02-02] MEDS ORDERED: MORPHINE SULFATE INJ 10 MG/ML VIAL ONE (10:25)
[2017-02-02] MEDS: MORPHINE SULFATE INJ 10 MG/ML VIAL IV PRN ×2 (10:29→14:29)
--- NOTE | 2017-02-02 10:55 | PN ---
SUPERVISING PHYSICIAN: Madan Morillo MD DATE: 02/02/17 SUBJECTIVE: The patient feels a little bit better. He is having some chest discomfort with each cough. He states he was able to cough up a sample to send down for analysis. He is currently without distress. OBJECTIVE: VITAL SIGNS: Blood pressure 139/86. Heart rate 100. Respiratory rate 20. Temperature 98.0. Oxygen saturation 93%. GENERAL: Mr. Bahena is a 51-year-old male patient with no active distress currently. NEUROLOGIC: Alert and oriented. LUNGS: Very coarse bilaterally, but no active wheezing. CARDIOVASCULAR: Regular rate and rhythm. Normal S1, S2. ABDOMEN: Soft, obese. Positive bowel sounds. Nontender to palpation. MUSCULOSKELETAL: Moving all extremities. Strength is normal. Capillary refill less than 2 seconds. LABORATORY: WBC 20.8, hemoglobin 12.4, hematocrit 38.9, platelet count 280. Chemistries show sodium 138, potassium 4.5, chloride 104, CO2 29, BUN 16, creatinine 0.65. Glucose 265, calcium 8.8. Chest x-ray without any acute consolidation or pulmonary vascular congestion. ASSESSMENT: 1. Acute exacerbation of chronic obstructive pulmonary disease. 2. Hypertension. 3. Type 2 diabetes mellitus. 4. Morbid obesity. 5. Leukocytosis. 6. Obstructive sleep apnea. PLAN: 1. At this time, we will continue steroids and nebulizers. He has not required continuous BiPAP. Instead, he is just using it when he sleeps. I am going to reduce the dose of steroids at this point due to his improvement in wheezing. 2. Blood pressure controlled currently. Continue current medicines. 3. Regarding diabetes, I feel like most of his g;ucose elevation is due to the corticosteroids. I am reducing these by half today, so there should be some improvement. If they continue to be extremely high, we will adjust his insulin. 4. Leukocytosis appears to be secondary to his steroids at this time. His chest x-ray is not showing any significant pneumonia. 5. Regarding his sleep apnea, we will continue the BiPAP for now. Once he improves even further, we can just go back to his home CPAP. [facility][id number]
[2017-02-02] MEDS: hydrOXYzine PAMOATE 25 MG CAP PO SCH ×2 (14:39→21:26)
[2017-02-02] MEDS ORDERED: ENOXAPARIN SODIUM 40 MG/0.4 ML SYG SUBCU ONE (19:52)
[2017-02-02] MEDS: NICOTINE PATCH 14 MG TD SCH (21:24)
[2017-02-02] MEDS: ENOXAPARIN SODIUM 40 MG/0.4 ML SYG SUBCU SCH (21:25)
[2017-02-02] MEDS ORDERED: SODIUM CHL 0.9% 50ML MIN-BAG+ 50 ML IVPB ONE (22:42)
[2017-02-02] MEDS ORDERED: SODIUM CHLORIDE 0.9% 250ML 250 ML ONE (22:42)
[2017-02-02] MEDS ORDERED: AZITHROMYCIN IV 500 MG VIAL IVPB ONE (22:43)
[2017-02-02] MEDS: cefTRIAXone SODIUM 2 GM in SODIUM CHL 0.9% 50ML MIN-BAG+ 50 ML IVPB SCH (22:48)
[2017-02-03] MEDS: KCL 20 MEQ/NS 1,000 ML IVS PRN ×2 (01:41→14:22)
[2017-02-03] MEDS: ACETAMINOPHEN 325 MG TAB PO PRN ×2 (01:59→07:54)
[2017-02-03] MEDS: glipiZIDE 5 MG TAB PO SCH ×3 (06:30→21:53)
[2017-02-03] MEDS: IPRATROPIUM/ALBUTEROL 3 ML VIAL INH SCH ×3 (07:22→20:15)
[2017-02-03] MEDS: INSULIN LISPRO 100 UNITS/ML PEN SUBCU SCH ×7 (07:35→21:53)
[2017-02-03] MEDS: metFORMIN HCL 500 MG TAB PO SCH ×2 (07:55→21:53)
[2017-02-03] MEDS ORDERED: KETOROLAC TROMETHAMINE INJ 30 MG/ML VIAL IV ONE (08:26)
[2017-02-03] MEDS: ASPIRIN EC 81 MG TAB PO SCH (08:40)
[2017-02-03] MEDS: ATORVASTATIN 20 MG TAB PO SCH (08:41)
[2017-02-03] MEDS: CITALOPRAM HBR 20 MG TAB PO SCH (08:41)
[2017-02-03] MEDS: NON-FORMULARY MEDICATION 1 EA MIS (Sertraline Hcl [Sertraline Hcl] 100 MG) PO SCH (08:43)
[2017-02-03] MEDS: LISINOPRIL 10 MG TAB PO SCH (08:46)
[2017-02-03] MEDS: hydrOXYzine PAMOATE 25 MG CAP PO SCH ×3 (08:47→21:52)
[2017-02-03] MEDS: INSULIN DETEMIR 100 UNITS/ML PEN SUBCU SCH ×2 (08:48→21:00)
[2017-02-03] MEDS: methylPREDNISolone SODIUM SUC 40 MG/ML VIAL IV SCH ×3 (09:27→21:00)
--- NOTE | 2017-02-03 10:00 | PN ---
SUPERVISING PHYSICIAN: Madan Morillo MD DATE: 02/03/17 SUBJECTIVE: The patient states he feels a little bit better today. However, he still complains that every time he coughs, he still has some chest discomfort. This is the same chest discomfort he complained of upon admission. At that point, his cardiac workup was negative and his EKG was negative. He has been given p.r.n. morphine which he does state helps the pain. OBJECTIVE: VITAL SIGNS: Blood pressure 143/87. Heart rate 92. Respiratory rate 18. Temperature 97.9. Oxygen saturation 97%. GENERAL: Mr. Bahena is a 51-year-old, acutely ill appearing male who is in no active distress currently. NEUROLOGIC: Alert and oriented. LUNGS: No active wheezing currently. He has coarse sounds mainly on expiration bilaterally. CARDIOVASCULAR: Regular rate and rhythm. Normal S1, S2. ABDOMEN: Soft, obese. Positive bowel sounds. Nontender to palpation. MUSCULOSKELETAL: Moving all extremities. Strength is normal. Capillary refill less than 2 seconds. LABORATORY: Labs done today show a white count of 11.8, which is an improvement from 20.8. Hemoglobin 12.5, hematocrit 39.1, platelet count 291. Chemistries show sodium 138, potassium 4.1, CO2 28, BUN 14, creatinine 0.72, glucose 117, calcium 8.5. ASSESSMENT: 1. Acute exacerbation of chronic obstructive pulmonary disease. 2. Hypertension. 3. Type 2 diabetes mellitus. 4. Morbid obesity. 5. Leukocytosis. 6. Obstructive sleep apnea. PLAN: 1. I will reduce the steroids a little bit more today and continue nebulizers. He is complaining of some chest discomfort with cough. It is likely more bronchitis at this point. However, I will go ahead and get a set of cardiac enzymes. His EKG earlier in the admission was negative with the same complaints, so I will not repeat the EKG at this point. It's definitely reproducible and I feel like it is related to his bronchitis. 2. Blood pressure is stable on current medications, so we will continue these. 3. His glucoses are a little bit better now that we have reduced his steroids. It should improve even more given the fact that I am going to reduce his steroids a little bit more today. 4. Leukocytosis is better as well. This is likely related to the reduction of steroids. However, we will get some more labs tomorrow and make sure it does. Chest x-ray was not repeated due to the fact he did not show any pneumonia yesterday or the day before. 5. Sleep apnea is being treated already with BIPAP when he sleeps. At this point, he can likely start to be moved to his home device. #[id number] [facility]
[2017-02-03] MEDS ORDERED: SODIUM CHL 0.9% 50ML MIN-BAG+ 50 ML IVPB ONE (19:35)
[2017-02-03] MEDS ORDERED: sulfaSALAzine TAB 500 MG TAB ONE (19:35)
[2017-02-03] MEDS ORDERED: cefTRIAXone SODIUM 1 GM VIAL ONE (19:36)
[2017-02-03] MEDS ORDERED: AZITHROMYCIN 250 MG TAB PO ONE (19:37)
[2017-02-03] MEDS: ENOXAPARIN SODIUM 40 MG/0.4 ML SYG SUBCU SCH (21:00)
[2017-02-03] MEDS: NICOTINE PATCH 14 MG TD SCH (21:00)
[2017-02-03] MEDS: TEMAZEPAM 15 MG CAP PO PRN (22:52)
[2017-02-03] MEDS: cefTRIAXone SODIUM 2 GM in SODIUM CHL 0.9% 50ML MIN-BAG+ 50 ML IVPB SCH (22:55)
[2017-02-03] MEDS: IV SET AND CAP CHANGE INJ INJ SCH (22:55)
[2017-02-03] MEDS ORDERED: AZITHROMYCIN 250 MG TAB PO SCH (23:00)
[2017-02-04] MEDS: ACETAMINOPHEN 325 MG TAB PO PRN (02:16)
[2017-02-04] MEDS: KCL 20 MEQ/NS 1,000 ML IVS PRN (03:05)
[2017-02-04] MEDS: methylPREDNISolone SODIUM SUC 40 MG/ML VIAL IV SCH ×2 (03:06→08:59)
[2017-02-04] MEDS: glipiZIDE 5 MG TAB PO SCH ×2 (06:32→12:28)
--- NOTE | 2017-02-04 07:05 | RAD ---
Procedure: XR CHEST 1 VIEW Exam Date: 02/04/2017 Ordering Provider: Sin Castorena Clinical Indication: COPD exacerbation Comparison: 02/02/2017 Findings: Cardiomediastinal silhouette: Borderline cardiomegaly. Pulmonary vasculature : Unremarkable Aortic contour: Unremarkable Focal lung consolidation: None Pleural effusion: None Pneumothorax: None Bones and soft tissues: Nonacute Impression: 1. No acute abnormalities in the chest. Electronically signed by: Magnus Lujan MD 02/04/2017 7:04 AM [facility]
[2017-02-04] MEDS ORDERED: SERTRALINE HCL 50 MG TAB ONE (07:17)
[2017-02-04] MEDS: INSULIN LISPRO 100 UNITS/ML PEN SUBCU SCH ×4 (07:42→12:05)
[2017-02-04] MEDS: IPRATROPIUM/ALBUTEROL 3 ML VIAL INH SCH ×2 (08:31→11:44)
[2017-02-04] MEDS: metFORMIN HCL 500 MG TAB PO SCH (08:33)
[2017-02-04] MEDS: ATORVASTATIN 20 MG TAB PO SCH (08:56)
[2017-02-04] MEDS: LISINOPRIL 10 MG TAB PO SCH (08:56)
[2017-02-04] MEDS: ASPIRIN EC 81 MG TAB PO SCH (08:56)
[2017-02-04] MEDS: CITALOPRAM HBR 20 MG TAB PO SCH (08:56)
[2017-02-04] MEDS: hydrOXYzine PAMOATE 25 MG CAP PO SCH (08:56)
[2017-02-04] MEDS: NON-FORMULARY MEDICATION 1 EA MIS (Sertraline Hcl [Sertraline Hcl] 100 MG) PO SCH (08:57)
[2017-02-04] MEDS: INSULIN DETEMIR 100 UNITS/ML PEN SUBCU SCH (09:07)
[2017-02-04 12:33] VITALS: O2SAT 95
[2017-02-04] MEDS ORDERED: predniSONE 20 MG TAB PO SCH (13:00)
[2017-02-04 13:07] VITALS: BP 111/68; TEMP 96.7
--- NOTE | 2017-02-04 13:37 | DS ---
SUPERVISING PHYSICIAN: Madan Morillo MD DISCHARGE DIAGNOSIS: 1. Acute exacerbation of chronic obstructive pulmonary disease. 2. Hypertension. 3. Type 2 diabetes mellitus. 4. Morbid obesity. 5. Leukocytosis. 6. Obstructive sleep apnea. HISTORY OF PRESENT ILLNESS: This is a 51-year-old male patient who came to the Emergency Department after being seen by Dontrell Campos PA, on 01/31/17 for chest congestion and some coughing. He had had some coughing, nasal drainage with some worsening sputum production and ongoing increasing shortness of breath. He was given a prescription for albuterol inhaler, Z-Jacobo and Medrol Dosepak. The patient has a significant history of cigarette smoking with 2 packs per day for over 30 years as well as history of chronic obstructive pulmonary disease. It was noted in the Emergency Department that he did not start his steroids and was in the Emergency Room because he was having significant shortness of breath and was feeling worse. In the Emergency Department, laboratory studies showed he had a leukocytosis with 12,400 white count with a left shift. His blood gas analysis showed respiratory acidosis with severe hypoxemia with PCO2 58, PO2 33 and pH 7.33, but only satting 55% on a nasal cannula at 2 liters. His vital signs initially showed that he had a fever of 100.0 with a heart rate 109 with blood pressure 155/96, saturation 85% on room air per the SPO2 monitor. Chemistries were basically unremarkable with normal electrolytes and BUN 11, creatinine 0.85, glucose 99. Liver functions within normal limits. Radiographic studies completed in the Emergency Department included a portable chest x-ray which showed no evidence of acute cardiopulmonary disease. Upon reviewing with Dr. Moore, the Emergency Room physician, he felt that there was a left lower lobe retrocardiac infiltrate. He was given breathing treatments in the Emergency Department with saturations increasing to 89% on 2 liters. Given that he had exacerbation of chronic obstructive pulmonary disease having failed to respond to outpatient treatment and now with concerns for developing left lower lobe pneumonia with severe hypoxemia, the patient was admitted to the Medical/Surgical Floor for ongoing treatment. He was started on Rocephin and azithromycin as well as given Solu- Medrol IV. HOSPITAL COURSE: His condition improved daily, although his white count did go up, but most likely due to the steroids. The steroids were tapered off. He was placed on BiPAP at night in the hospital and he has a CPAP machine at home. Cardiac enzymes were done and were within normal limits. He was also on sliding scale insulin with a.c. and h.s. Accuchecks. WBCs topped out at 20,800 and dropped as low as 11,800. He had no complaints of shortness of breath. His vital signs have remained stable with his O2 sats at 95% on room air. He has been afebrile. He can be discharged home in stable condition. DISCHARGE PLAN: The patient will be discharged home in stable condition. He is encouraged to stop smoking. He is also encouraged to do good pulmonary hygiene at home. I have continued him on prednisone taper as well as three additional days of Zithromax. He will have a followup with Dr. Torres on 02/15/17 at 10 AM. He is to resume his previous home medications plus the azithromycin and prednisone. He is to return to the hospital or followup in clinic with Dr. Torres if there are any further problems or complications. DISCHARGE MEDICATIONS: 1. Metformin. 2. Lisinopril. 3. Lipitor. 4. Humalog insulin. 5. Ventolin. 6. Citalopram. 7. Aspirin. 8. Glipizide. 9. Hydroxyzine. 10. Propranolol. 11. Trazodone. 12. Azithromycin. 13. Prednisone. Dr. Morillo is the collaborating physician and available for consultation. #[id number] [facility]
== END 2017-02-04 13:36 | disposition home or self-care (01) | DRG 190 ==
LOC: ER 19:58 → MS 23:20 → OBSVTOIN 23:20
PROVIDERS: ADMIT Nurse Practitioner Family; ATTEND Nurse Practitioner Family
DX: J44.0 Chronic obstructive pulmonary disease with (acute) lower respiratory infection (principal); J18.9 Pneumonia, unspecified organism; E87.2 Acidosis; Z68.41 Body mass index [BMI] 40.0-44.9, adult; J44.1 Chronic obstructive pulmonary disease with (acute) exacerbation; I10 Essential (primary) hypertension; E11.9 Type 2 diabetes mellitus without complications; G47.33 Obstructive sleep apnea (adult) (pediatric); E66.01 Morbid (severe) obesity due to excess calories; F17.210 Nicotine dependence, cigarettes, uncomplicated; R09.02 Hypoxemia; R79.1 Abnormal coagulation profile; M51.36 Other intervertebral disc degeneration, lumbar region; E78.5 Hyperlipidemia, unspecified; Z96.651 Presence of right artificial knee joint; I25.2 Old myocardial infarction; Z87.820 Personal history of traumatic brain injury; Z95.5 Presence of coronary angioplasty implant and graft; Z79.82 Long term (current) use of aspirin; Z79.84 Long term (current) use of oral hypoglycemic drugs; Z79.1 Long term (current) use of non-steroidal anti-inflammatories (NSAID); Z79.899 Other long term (current) drug therapy; Z88.6 Allergy status to analgesic agent; Z88.0 Allergy status to penicillin; Z88.2 Allergy status to sulfonamides

== ENCOUNTER → 2017-03-24 | Outpatient (CLI) | payer MEDICARE, MEDICAID ==
--- NOTE | 2017-03-26 15:03 | RAD ---
EXAM DESCRIPTION: Shoulder,Right 2 or More Views CLINICAL HISTORY: 51 years Male, PAIN COMPARISON: None. FINDINGS: 4 views of the right shoulder show no acute fracture or malalignment. There are mild degenerative changes in the right AC joint including slight undersurface spurring. No soft tissue abnormality. IMPRESSION: Mild degenerative changes in the right AC joint, otherwise unremarkable exam. Electronically signed by: Sahil Simmons MD 03/26/2017 3:01 PM [facility]
== END ==
LOC: RAD 07:05
PROVIDERS: ATTEND Orthopaedic Surgery
DX: M25.511 Pain in right shoulder (principal)

== ENCOUNTER → 2017-04-01 | Outpatient (CLI) | payer MEDICARE, MEDICAID | LOC: CT 09:19 | PROVIDERS: ATTEND Orthopaedic Surgery | DX: M75.101 Unspecified rotator cuff tear or rupture of right shoulder, not specified as traumatic (principal) ==

== ENCOUNTER → 2017-04-06 | Outpatient (CLI) | payer MEDICARE, MEDICAID | LOC: GMAJ 11:20 | PROVIDERS: ATTEND Family Medicine | DX: Z12.5 Encounter for screening for malignant neoplasm of prostate (principal) ==

== ENCOUNTER → 2017-04-08 | Outpatient (CLI) | payer MEDICARE, MEDICAID | LOC: LAB.O 09:02 | PROVIDERS: ATTEND Orthopaedic Surgery | DX: Z01.818 Encounter for other preprocedural examination (principal) ==

== ENCOUNTER → 2017-04-13 | Outpatient (CLI) | payer MEDICARE, MEDICAID ==
--- NOTE | 2017-04-15 12:23 | CT ---
EXAM DESCRIPTION: Head CLINICAL HISTORY: MIGRAINE WITH AURA, NOT INTRACTABLE COMPARISON: None available TECHNIQUE: Noncontrast head CT was performed with routine protocol. FINDINGS: Normal mora-white matter differentiation. Ventricles and sulci are prominent but still considered normal for age. No high density hemorrhage, focal edema or shift of the midline. No sulcal effacement. Normal orbital contents. Basilar cisterns appear clear. Intact calvarium with no fracture or lytic lesion. Normal aeration of tympanic cavities and mastoid air cells. Fluid level is seen in the left sphenoid sinus. Mucous retention cysts are seen in the anterior right sphenoid sinus and in the left frontal sinus. Cerumen accumulation is seen in the left more than right external auditory canals. There is petroclinoid ligament calcification bilaterally. Skull base appears intact. Symmetrical internal auditory canals. IMPRESSION: No acute intracranial pathologic process. This exam was performed according to our departmental dose-optimization program, which includes automated exposure control, adjustment of the mA and/or kV according to patient size and/or use of iterative reconstruction technique. Total DLP equals 752.48 mGycm. Electronically signed by: Cosme Aggarwal MD 04/15/2017 12:22 PM [facility]
== END ==
LOC: CT 08:00
PROVIDERS: ATTEND Family Medicine
DX: G43.109 Migraine with aura, not intractable, without status migrainosus (principal)

== ENCOUNTER 2017-09-08 03:52 | Emergency (ER) | payer MEDICARE, MEDICAID ==
--- NOTE | 2017-09-08 04:01 | ED.PDOC ---
History of Present Illness - General Chief Complaint: Skin/Abrasion/Tear Time Seen by Provider: 09/08/17 04:01 Source: patient, RN notes reviewed, Vital Signs reviewed Exam Limitations: no limitations - History of Present Illness Timing/Duration: 1 week Severity: moderate Improving Factors: nothing Worsening Factors: nothing Associated Symptoms: denies symptoms Allergies/Adverse Reactions: Allergies Sulfamethoxazole w/Trimethoprim [From Bactrim] Allergy (Verified 01/31/17 20:19) Tramadol Allergy (Verified 01/31/17 20:19) Penicillin G Adverse Reaction (Verified 07/20/15 21:44) Sulfa Antibiotics Adverse Reaction (Verified 07/20/15 21:44) Home Medications: Ambulatory Orders Lisinopril 20 mg PO DAILY 01/05/15 Metformin HCl 1,000 mg PO BID 01/05/15 Atorvastatin Calcium [Lipitor] 20 mg PO DAILY 02/26/16 Albuterol Inhaler [Ventolin Hfa Inhaler] 1 puff INH TID #1 inh 02/29/16 Insulin Lispro [Humalog] 0 u SUBCU ACHS #0 pen 02/29/16 Aspirin [Aspirin EC Low Dose] 81 mg PO DAILY 01/31/17 Citalopram Hydrobromide 20 mg PO DAILY 01/31/17 Glipizide 5 mg PO TID 01/31/17 Propranolol HCl 10 mg PO TID PRN 02/02/17 Sertraline HCl 100 mg PO DAILY 02/02/17 hydrOXYzine PAMOATE [Vistaril] 25 mg PO TID 02/02/17 traZODone HCL [Desyrel] 100 mg PO BEDTIME PRN 02/02/17 Azithromycin Tab [Zithromax Tab] 500 mg PO DAILY@2300 #3 tab 02/04/17 predniSONE See Taper PO DAILY #30 tab 02/04/17 Cefdinir 300 mg PO BID #14 capsule 07/21/17 Ketorolac Tromethamine [Toradol Tabs] 10 mg PO Q6HR PRN 5 Days #20 tab 07/21/17 Clindamycin HCl 300 mg PO Q6H 7 Days #28 cap 09/08/17 Ketorolac Tromethamine [Toradol Tabs] 10 mg PO Q6H PRN #20 tab 09/08/17 Review of Systems - Review of Systems Constitutional: States: no symptoms reported EENTM: States: no symptoms reported Respiratory: States: no symptoms reported Cardiology: States: no symptoms reported Gastrointestinal/Abdominal: States: no symptoms reported Genitourinary: States: no symptoms reported Musculoskeletal: States: no symptoms reported Skin: States: rash Endocrine: Denies: excessive sweating, intolerance to cold, intolerance to heat , increased hunger, increased thirst, increased urine Past Medical History (General) - Patient Medical History Hx Seizures: No Hx Stroke: No Hx Dementia: No Hx Asthma: No Hx of COPD: Yes Hx Cardiac Disorders: Yes - RI x 2; cardiac stent 2013 Hx Congestive Heart Failure: No Hx Pacemaker: No Hx Hypertension: Yes Hx Thyroid Disease: No Hx Diabetes: Yes Hx Gastroesophageal Reflux: No Hx Renal Disease: No Hx Cancer: No Hx of HIV: No Hx Hepatitis C: No Hx MRSA: No - Vaccination History Hx Tetanus, Diphtheria Vaccination: Yes Hx Influenza Vaccination: Yes - 2015 Hx Pneumococcal Vaccination: Yes - 2016 - Social History Hx Tobacco Use: Yes Hx Chewing Tobacco Use: No Hx Alcohol Use: Yes - occ Hx Substance Use: No Hx Substance Use Treatment: No Hx Depression: No Hx Physical Abuse: No Hx Emotional Abuse: No Hx Suspected Abuse: No Family Medical History - Family History Father Family History: Unknown Living Status: Hx Family Asthma: No Hx Family Congestive Heart Failure: Yes Hx Family Hypertension: Yes Hx Family Stroke: No Hx Cardiac Disease: Yes Hx Family Diabetes: Yes Hx Family Cancer: Yes - prostate cancer Mother Family History: No Known Physical Exam - Physical Exam General Appearance: Alert, Comfortable, No apparent distress Ears, Nose, Throat: hearing grossly normal, normal ENT inspection Neck: non-tender, full range of motion Respiratory: chest non-tender, lungs clear Cardiovascular/Chest: regular rate, rhythm Gastrointestinal/Abdominal: non tender, soft Rectal Exam: other - normal male testicles/ penis, no mass, no redness, no crepitus Back Exam: normal inspection Extremity: normal range of motion, non-tender Skin Exam: rash - 1 cm abscess to the right groin with 3 inches of surrounding cellulitis Procedures - Incision and Drainage #1 Procedure and Prep: betadine prep, sterile dressings applied, irrigated, wound culture collected, pus drained Blade Size: 11 Procedure Comments: no gas from wound, abscess 1 cm in size drained 1 cc of purulence. Departure - Departure Clinical Impression: Abscess of groin, right, Cellulitis of groin, right Time of Disposition: 04:19 Disposition: Discharge to Home or Self Care Condition: Excellent Departure Forms: ED Discharge - Pt. Copy, Patient Portal Self Enrollment Instructions: Boil, Cellulitis and Erysipelas (Skin Infections), DI for Abrasion Diet: diabetic diet Activity: increase activity as tolerated Referrals: Nakul Torres MD [Primary Care Provider] - 1-2 Weeks Prescriptions: Clindamycin HCl 300 mg PO Q6H 7 Days #28 cap Ketorolac Tromethamine [Toradol Tabs] 10 mg PO Q6H PRN #20 tab PRN Reason: Pain Home Medications: Ambulatory Orders Lisinopril 20 mg PO DAILY 01/05/15 Metformin HCl 1,000 mg PO BID 01/05/15 Atorvastatin Calcium [Lipitor] 20 mg PO DAILY 02/26/16 Albuterol Inhaler [Ventolin Hfa Inhaler] 1 puff INH TID #1 inh 02/29/16 Insulin Lispro [Humalog] 0 u SUBCU ACHS #0 pen 02/29/16 Aspirin [Aspirin EC Low Dose] 81 mg PO DAILY 01/31/17 Citalopram Hydrobromide 20 mg PO DAILY 01/31/17 Glipizide 5 mg PO TID 01/31/17 Propranolol HCl 10 mg PO TID PRN 02/02/17 Sertraline HCl 100 mg PO DAILY 02/02/17 hydrOXYzine PAMOATE [Vistaril] 25 mg PO TID 02/02/17 traZODone HCL [Desyrel] 100 mg PO BEDTIME PRN 02/02/17 Azithromycin Tab [Zithromax Tab] 500 mg PO DAILY@2300 #3 tab 02/04/17 predniSONE See Taper PO DAILY #30 tab 02/04/17 Cefdinir 300 mg PO BID #14 capsule 07/21/17 Ketorolac Tromethamine [Toradol Tabs] 10 mg PO Q6HR PRN 5 Days #20 tab 07/21/17 Clindamycin HCl 300 mg PO Q6H 7 Days #28 cap 09/08/17 Ketorolac Tromethamine [Toradol Tabs] 10 mg PO Q6H PRN #20 tab 09/08/17 Additional Instructions: watch groin redness, if it continues to progress or you have fever, return to the ED for re evaluation
[2017-09-08] MEDS ORDERED: LIDOCAINE 1% W/ EPINEPHRINE 20 ML VIAL INJ ONE ×2 (04:06)
[2017-09-08] MEDS ORDERED: CLINDAMYCIN PHOSPHATE 150 MG/ML VIAL IM ONE (04:07)
[2017-09-08] MEDS ORDERED: POVIDONE IODINE 10 % 15 ML UD TOP ONE (04:09)
[2017-09-08 04:15] VITALS: BP 133/81; TEMP 97.5; O2SAT 95
== END 2017-09-08 04:31 | disposition home or self-care (01) ==
LOC: ER 03:52
DX: L02.214 Cutaneous abscess of groin (principal); L03.314 Cellulitis of groin; J44.9 Chronic obstructive pulmonary disease, unspecified; I25.2 Old myocardial infarction; I10 Essential (primary) hypertension; E11.9 Type 2 diabetes mellitus without complications; Z98.61 Coronary angioplasty status; Z79.84 Long term (current) use of oral hypoglycemic drugs; Z79.82 Long term (current) use of aspirin; Z79.4 Long term (current) use of insulin
CPT/HCPCS: 87070; 87075; J3490

== ENCOUNTER 2017-11-10 19:35 | Emergency (ER) | payer MEDICARE, MEDICAID ==
--- NOTE | 2017-11-10 09:29 | RAD ---
EXAM DESCRIPTION: Knee,Right 2 or More Views CLINICAL HISTORY: 52 years, Male, PAIN IN RT KNEE COMPARISON: Previous study February 06, 2016 TECHNIQUE: Four views of the right knee including standing view FINDINGS: No fracture or dislocation. Bones appear normally mineralized with normal trabecular pattern. Narrowed appearance of medial compartment on frontal view with medial joint line spurring. . Sclerosis and eburnation of the medial femoral condyle more than medial tibial plateau. Mild spurring of the tibial spines. Lateral view shows normal position of the patella. Mild posterior patellar spurring. No suprapatellar knee joint effusion. Normal contour of quadriceps and patellar tendons. No abnormal patellar tilt or subluxation on patellar sunrise view. Prominent medial and lateral patellofemoral spurring. Compared to previous study, findings are very similar. IMPRESSION: Degenerative changes as described. Electronically signed by: Cosme Aggarwal MD 11/10/2017 9:28 AM CDT
--- NOTE | 2017-11-10 09:30 | RAD ---
EXAM DESCRIPTION: Pelvis CLINICAL HISTORY: 52 years Male, PAIN IN RT HIP COMPARISON: None. FINDINGS: No fracture. No hip dislocation. Proximal femurs appear intact. Intact sacrum and SI joints. No significant hip joint space narrowing is evident. IMPRESSION: Negative for fracture. Electronically signed by: Cosme Aggarwal MD 11/10/2017 9:29 AM CDT
[2017-11-10 19:56] VITALS: TEMP 98.6
[2017-11-10] MEDS ORDERED: ONDANSETRON INJ 4 MG/2 ML VIAL IV ONE (20:04)
--- NOTE | 2017-11-10 20:24 | ED.PDOC ---
History of Present Illness - General Chief Complaint: Diabetic Complaint Stated Complaint: nausea due to diabetic medication Time Seen by Provider: 11/10/17 20:00 Source: patient Exam Limitations: no limitations - History of Present Illness Initial Comments: Patient presents with N/V after taking Trulicity. He has been taking it for a week. He also says that he takes Victoza, Humalog, and Byetta. He has had the N /V for two days. He says that before taking the Trulicity, his blood sugars were in the 200-300s but since then they have been in the low 100s. He has no other complaints today. Timing/Duration: other - 2 days Severity: moderate Improving Factors: nothing, eating Associated Symptoms: denies symptoms Allergies/Adverse Reactions: Allergies Sulfamethoxazole w/Trimethoprim [From Bactrim] Allergy (Verified 11/10/17 20:06) Tramadol Allergy (Verified 11/10/17 20:06) Penicillin G Adverse Reaction (Verified 11/10/17 20:06) Sulfa Antibiotics Adverse Reaction (Verified 11/10/17 20:06) Home Medications: Ambulatory Orders Atorvastatin Calcium [Lipitor] 20 mg PO DAILY 11/10/17 Citalopram Hydrobromide [Citalopram] 20 mg PO DAILY 11/10/17 Clopidogrel Bisulfate [Plavix] 75 mg PO DAILY 11/10/17 Dulaglutide [Trulicity] 0.75 unit SC WKLY 11/10/17 Exenatide [Byetta] 10 unit SC DAILY 11/10/17 Glipizide [Glipizide ER] 10 mg PO DAILY 11/10/17 HYDROcodone 5MG/APAP 325MG 1 tablet PO Q4HR PRN 11/10/17 Hydroxyzine Pamoate 25 mg PO DAILY 11/10/17 Insulin Degludec [Tresiba Flextouch] 0 unit SC DAILY 11/10/17 Insulin Lispro [Humalog Kwikpen] 100 unit SC PRN 11/10/17 Liraglutide [Victoza] 18 unit SC DAILY 11/10/17 Propranolol HCl 10 mg PO DAILY 11/10/17 Sertraline HCl 100 mg PO DAILY 11/10/17 traZODone HCL [Desyrel] 150 mg PO PRN 11/10/17 Review of Systems - Review of Systems Constitutional: States: no symptoms reported EENTM: States: no symptoms reported Respiratory: States: no symptoms reported Cardiology: States: no symptoms reported Gastrointestinal/Abdominal: States: see HPI Genitourinary: States: no symptoms reported Musculoskeletal: States: no symptoms reported Skin: States: no symptoms reported Neurological: States: no symptoms reported Endocrine: States: see HPI, excessive sweating Hematologic/Lymphatic: States: no symptoms reported Past Medical History (General) - Patient Medical History Hx Seizures: No Hx Stroke: No Hx Dementia: No Hx Asthma: No Hx of COPD: Yes Hx Cardiac Disorders: Yes - [place] x 2; cardiac stent 2013 Hx Congestive Heart Failure: No Hx Pacemaker: No Hx Hypertension: Yes Hx Thyroid Disease: No Hx Diabetes: Yes Hx Gastroesophageal Reflux: No Hx Renal Disease: No Hx Cancer: No Hx of HIV: No Hx Hepatitis C: No Hx MRSA: No - Vaccination History Hx Tetanus, Diphtheria Vaccination: Yes Hx Influenza Vaccination: Yes - 2015 Hx Pneumococcal Vaccination: Yes - 2016 - Social History Hx Tobacco Use: Yes Hx Chewing Tobacco Use: No Hx Alcohol Use: Yes - occ Hx Substance Use: No Hx Substance Use Treatment: No Hx Depression: No Hx Physical Abuse: No Hx Emotional Abuse: No Hx Suspected Abuse: No - Triage Comment ED Triage Comment: Pt reports he recently started Trulicity injection within a month and his Metformin 1000mg. Pt states he takes it once a week and when he takes it makes him sick everytime. Pt has been vomiting x2 days. Feeling weak and sweaty Family Medical History - Family History Father Family History: Unknown Living Status: Hx Family Asthma: No Hx Family Congestive Heart Failure: Yes Hx Family Hypertension: Yes Hx Family Stroke: No Hx Cardiac Disease: Yes Hx Family Diabetes: Yes Hx Family Cancer: Yes - prostate cancer Mother Family History: No Known Physical Exam - Physical Exam General Appearance: Alert Eye Exam: bilateral normal Ears, Nose, Throat: normal ENT inspection Neck: non-tender, full range of motion, supple Respiratory: lungs clear, normal breath sounds Cardiovascular/Chest: normal peripheral pulses, regular rate, rhythm Gastrointestinal/Abdominal: normal bowel sounds, non tender, soft Extremity: normal range of motion, non-tender Neurologic: customer service supervisor II-XII nml as tested, no motor/sensory deficits, alert, normal mood/affect, oriented x 3 Skin Exam: normal color Lymphatic: no adenopathy Progress - Progress Progress: 09/13/18 21:00 Laboratory Tests 11/10/17 11/10/17 11/10/17 19:41 20:13 20:13 WBC 12.6 H RBC 4.85 Hgb 13.8 L Hct 42.2 MCV 87.1 MCH 28.4 MCHC 32.6 L RDW 14.7 H Plt Count 327 MPV 8.2 Absolute Neuts (auto) 9.30 H Absolute Lymphs (auto) 2.50 Absolute Monos (auto) 0.70 Absolute Eos (auto) 0.10 Absolute Basos (auto) 0.00 Neutrophils % 73.9 Lymphocytes % 19.7 L Monocytes % 5.4 Eosinophils % 0.7 L Basophils % 0.3 Sodium 139 Potassium 4.0 Chloride 102 Carbon Dioxide 29 Anion Gap 12.0 BUN 13 Creatinine 0.75 BUN/Creatinine Ratio 17.3 POC Glucose 76 Random Glucose 111 H Hemoglobin A1c Serum Osmolality 278.3 Calcium 8.8 Total Bilirubin 0.2 AST 22 ALT 26 Alkaline Phosphatase 123 H Serum Total Protein 7.8 Albumin 3.9 Globulin 3.9 H Albumin/Globulin Ratio 1.0 L Lipase 27 Urine Color Urine Appearance Urine pH Ur Specific Herrick Urine Protein Urine Glucose (UA) Urine Ketones Urine Blood Urine Nitrite Urine Bilirubin Urine Urobilinogen Ur Leukocyte Esterase Urine RBC Urine WBC Ur Epithelial Cells Urine Bacteria 11/10/17 11/10/17 11/10/17 20:30 20:35 20:43 WBC RBC Hgb Hct MCV MCH MCHC RDW Plt Count MPV Absolute Neuts (auto) Absolute Lymphs (auto) Absolute Monos (auto) Absolute Eos (auto) Absolute Basos (auto) Neutrophils % Lymphocytes % Monocytes % Eosinophils % Basophils % Sodium Potassium Chloride Carbon Dioxide Anion Gap BUN Creatinine BUN/Creatinine Ratio POC Glucose 130 H D Random Glucose Hemoglobin A1c 6.2 H Serum Osmolality Calcium Total Bilirubin AST ALT Alkaline Phosphatase Serum Total Protein Albumin Globulin Albumin/Globulin Ratio Lipase Urine Color Yellow Urine Appearance Clear Urine pH 6.0 Ur Specific Herrick 1.015 Urine Protein Negative Urine Glucose (UA) Negative Urine Ketones Negative Urine Blood Negative Urine Nitrite Negative Urine Bilirubin Negative Urine Urobilinogen 1.0 Ur Leukocyte Esterase Small H Urine RBC 1-3 Urine WBC 5-10 H Ur Epithelial Cells 5-10 Urine Bacteria Rare Labs wnl. Patient vomited once in the E.D. but then it resolved with Zofran. He was instructed to take all of his medications as normal in the morning with the exception of the Byetta. He is to hold that until he contacts his Pcp. E.R. warnings given. Questions were elicited and answered. Patient voiced understanding and agreement with the plan. Departure - Departure Clinical Impression: Nausea & vomiting Disposition: Discharge to Home or Self Care Condition: Good Departure Forms: ED Discharge - Pt. Copy, Patient Portal Self Enrollment Instructions: DI for Diabetes Type 2 Diet: resume usual diet Activity: increase activity as tolerated Referrals: Nakul Torres MD [Primary Care Provider] - 1-2 Weeks Home Medications: Ambulatory Orders Atorvastatin Calcium [Lipitor] 20 mg PO DAILY 11/10/17 Citalopram Hydrobromide [Citalopram] 20 mg PO DAILY 11/10/17 Clopidogrel Bisulfate [Plavix] 75 mg PO DAILY 11/10/17 Dulaglutide [Trulicity] 0.75 unit SC WKLY 11/10/17 Exenatide [Byetta] 10 unit SC DAILY 11/10/17 Glipizide [Glipizide ER] 10 mg PO DAILY 11/10/17 HYDROcodone 5MG/APAP 325MG 1 tablet PO Q4HR PRN 11/10/17 Hydroxyzine Pamoate 25 mg PO DAILY 11/10/17 Insulin Degludec [Tresiba Flextouch] 0 unit SC DAILY 11/10/17 Insulin Lispro [Humalog Kwikpen] 100 unit SC PRN 11/10/17 Liraglutide [Victoza] 18 unit SC DAILY 11/10/17 Propranolol HCl 10 mg PO DAILY 11/10/17 Sertraline HCl 100 mg PO DAILY 11/10/17 traZODone HCL [Desyrel] 150 mg PO PRN 11/10/17 Additional Instructions: Don't take your morning dose of Byetta until you speak with your regular doctor. Take your other medications as scheduled. Return to the E.R. for drowsiness, confusion, or if your friends notice a change in mental status or unresponsiveness. Call your doctor as soon as her office opens in the morning.
[2017-11-10 20:49] VITALS: O2SAT 94
[2017-11-10] MEDS ORDERED: ONDANSETRON ODT (ER DISP) 8 MG TAB PO ONE (21:05)
[2017-11-10 21:19] VITALS: BP 134/79
== END 2017-11-10 21:20 | disposition home or self-care (01) ==
LOC: ER 19:35
DX: R11.2 Nausea with vomiting, unspecified (principal); E11.9 Type 2 diabetes mellitus without complications; M17.11 Unilateral primary osteoarthritis, right knee; M25.551 Pain in right hip; I25.2 Old myocardial infarction; J44.9 Chronic obstructive pulmonary disease, unspecified; I10 Essential (primary) hypertension; Z79.899 Other long term (current) drug therapy; Z95.5 Presence of coronary angioplasty implant and graft; Z79.4 Long term (current) use of insulin; Z88.2 Allergy status to sulfonamides; Z88.0 Allergy status to penicillin; Z88.5 Allergy status to narcotic agent; Z87.891 Personal history of nicotine dependence
CPT/HCPCS: 36415; 36416; 72170; 73560; 80053; 81001; 82948; 83036; 83690; 85025; 87086; J2405

== ENCOUNTER → 2017-11-16 | Outpatient (CLI) | payer MEDICARE, MEDICAID ==
--- NOTE | 2017-11-16 11:00 | US ---
EXAM DESCRIPTION: Testicular CLINICAL HISTORY: 52 years Male, pain, N50.819 COMPARISON: None. FINDINGS: Right Small to moderate amount of fluid around the right testicle is seen suggesting minimal hydrocele. Right testicle is homogeneous in texture with no intratesticular mass. Right testicle measures 4.9 x 3.2 x 2.7 cm. The right epididymal head measures 6 mm in craniocaudal dimension which appears normal. Color Doppler imaging shows no hyperemia of the epididymis. Small appendix testis or appendix epididymis is depicted measuring 3.7 mm. No varicocele. Color Doppler imaging shows positive arterial and venous flow within the right testicle. Left Homogeneous texture of the left testicle is seen. A testicle measures 4.4 x 2.7 x 2.9 cm. No intratesticular mass lesion. Small calcification in the medial left testicle measures 3 mm and appears benign. No other calcifications to suggest microlithiasis. The head of the left epididymis measures 6 mm in craniocaudal dimension. Color Doppler imaging shows positive arterial and venous flow within the testicle. No hyperemia of the testicle or epididymis. The amount of fluid around the left epididymis is normal to slightly increased. Mildly prominent pampiniform plexus of veins. IMPRESSION: Normal to mildly increased amount of fluid around the testicles. Small benign-appearing left intratesticular calcification. Otherwise homogeneous texture of the testicles with no intratesticular lesion on either side. Normal appearance of the right and left epididymal heads. Electronically signed by: Cosme Aggarwal MD 11/16/2017 10:59 AM CDT
== END ==
LOC: US 09:30
PROVIDERS: ATTEND Family Medicine
DX: N50.819 Testicular pain, unspecified (principal)

== ENCOUNTER → 2017-12-16 | Outpatient (CLI) | payer MEDICARE, MEDICAID | LOC: RESP 08:19 | PROVIDERS: ATTEND Orthopaedic Surgery | DX: Z01.818 Encounter for other preprocedural examination (principal) ==

== ENCOUNTER 2018-02-01 22:51 | Emergency (ER) | payer MEDICARE, MEDICAID ==
[2018-02-01] MEDS ORDERED: MORPHINE SULFATE INJ 10 MG/ML VIAL IM ONE (23:18)
[2018-02-01] MEDS ORDERED: ONDANSETRON INJ 4 MG/2 ML VIAL IM ONE (23:19)
--- NOTE | 2018-02-01 23:27 | ED.PDOC ---
History of Present Illness - General Chief Complaint: Neck Injury/Pain Stated Complaint: neck pain Time Seen by Provider: 02/01/18 23:16 Source: patient - History of Present Illness Initial Comments: HE WAS HAVING A DOPPLER STUDY OF HIS LEGS TODAY AND WHEN HE GOT UP FROM THE GURNEY HE NOTED PAIN TO THE RIGHT SIDE OF THE NECK. EVER SINCE HE C/O PAIN TO MOVE HIS NECK. DENIES ANY TRAUMA. Timing/Duration: 4-6 hours Severity: moderate Improving Factors: immobilization Worsening Factors: movement Associated Symptoms: denies symptoms Allergies/Adverse Reactions: Allergies Sulfamethoxazole w/Trimethoprim [From Bactrim] Allergy (Verified 02/01/18 23:01) Tramadol Allergy (Verified 02/01/18 23:01) Penicillin G Adverse Reaction (Verified 02/01/18 23:01) Sulfa Antibiotics Adverse Reaction (Verified 02/01/18 23:01) Home Medications: Ambulatory Orders Atorvastatin Calcium [Lipitor] 20 mg PO DAILY 11/10/17 Citalopram Hydrobromide [Citalopram] 20 mg PO DAILY 11/10/17 Clopidogrel Bisulfate [Plavix] 75 mg PO DAILY 11/10/17 Dulaglutide [Trulicity] 0.75 unit SC WKLY 11/10/17 Exenatide [Byetta] 10 unit SC DAILY 11/10/17 Glipizide [Glipizide ER] 10 mg PO DAILY 11/10/17 HYDROcodone 5MG/APAP 325MG 1 tablet PO Q4HR PRN 11/10/17 Hydroxyzine Pamoate 25 mg PO DAILY 11/10/17 Insulin Degludec [Tresiba Flextouch] 0 unit SC DAILY 11/10/17 Insulin Lispro [Humalog Kwikpen] 100 unit SC PRN 11/10/17 Liraglutide [Victoza] 18 unit SC DAILY 11/10/17 Propranolol HCl 10 mg PO DAILY 11/10/17 Sertraline HCl 100 mg PO DAILY 11/10/17 traZODone HCL [Desyrel] 150 mg PO PRN 11/10/17 Acetaminophen W/ Codeine [Tylenol W/ CODEINE #3] 1 ea PO Q6HRS #20 02/01/18 Cyclobenzaprine HCl [Flexeril] 10 mg PO Q8HRS #15 tab 02/01/18 Review of Systems - Review of Systems Constitutional: States: no symptoms reported EENTM: States: no symptoms reported Respiratory: States: no symptoms reported Cardiology: States: no symptoms reported Gastrointestinal/Abdominal: States: no symptoms reported Genitourinary: States: no symptoms reported Musculoskeletal: States: muscle pain, muscle stiffness Skin: States: no symptoms reported Neurological: States: no symptoms reported Endocrine: States: no symptoms reported Hematologic/Lymphatic: States: no symptoms reported Past Medical History (General) - Patient Medical History Hx Seizures: No Hx Stroke: No Hx Dementia: No Hx Asthma: No Hx of COPD: Yes Hx Cardiac Disorders: Yes - [place] x 2; cardiac stent 2013 and in May 2017 Hx Congestive Heart Failure: No Hx Pacemaker: No Hx Hypertension: Yes Hx Thyroid Disease: No Hx Diabetes: Yes Hx Gastroesophageal Reflux: No Hx Renal Disease: No Hx Cancer: No Hx of HIV: No Hx Hepatitis C: No Hx MRSA: No Surgical History: other - Vaccination History Hx Tetanus, Diphtheria Vaccination: No Hx Influenza Vaccination: No Hx Pneumococcal Vaccination: No Immunizations Up to Date: No - Social History Hx Tobacco Use: Yes Cigarettes Packs Per Day: 1 Hx Chewing Tobacco Use: No Hx Alcohol Use: No Hx Substance Use: No Hx Substance Use Treatment: No Hx Depression: No Feels Threatened In Home Enviroment: No Feels Threatened In a Relationship: No Hx Physical Abuse: No Hx Emotional Abuse: No Hx Suspected Abuse: No - Activities of Daily Living Hospice Agency (if applicable):: None - Triage Comment ED Triage Comment: Pt states that his neck began hurting about 1400 today. Pt states that pain is now 10/10. Pt says he is able to turn his head toward his left side but not his right. Family Medical History - Family History Father Family History: Unknown Living Status: Hx Family Asthma: No Hx Family Congestive Heart Failure: Yes Hx Family Hypertension: Yes Hx Family Stroke: No Hx Cardiac Disease: Yes Hx Family Diabetes: Yes Hx Family Cancer: Yes - prostate cancer Mother Family History: No Known Physical Exam - Physical Exam General Appearance: Alert, Obvious distress, Well Developed, Well Groomed, Well Hydrated, Well Nourished Eye Exam: bilateral normal Ears, Nose, Throat: hearing grossly normal, normal ENT inspection Neck: limited range of motion, tender lateral, other - ABLE TO ROTATE TO THE LEFT BUT NOT TO THE RIGHT. HYPEREXTENSION IS QUITE PAINFUL AND PALPATION OF THE RIGHT SCM MUSCLE IS ALSO VERY PAINFUL. Progress - Progress Progress: 02/01/18 23:57 ct of the cervical spine is negative. Departure - Departure Clinical Impression: Torticollis, acute, Torticollis Time of Disposition: 23:58 Disposition: Discharge to Home or Self Care Condition: Fair Departure Forms: ED Discharge - Pt. Copy, Patient Portal Self Enrollment Instructions: DI for Neck Pain Diet: resume usual diet Referrals: Nakul Torres MD [Primary Care Provider] - 1-2 Weeks Prescriptions: Acetaminophen W/ Codeine [Tylenol W/ CODEINE #3] 1 ea PO Q6HRS #20 Cyclobenzaprine HCl [Flexeril] 10 mg PO Q8HRS #15 tab Home Medications: Ambulatory Orders Atorvastatin Calcium [Lipitor] 20 mg PO DAILY 11/10/17 Citalopram Hydrobromide [Citalopram] 20 mg PO DAILY 11/10/17 Clopidogrel Bisulfate [Plavix] 75 mg PO DAILY 11/10/17 Dulaglutide [Trulicity] 0.75 unit SC WKLY 11/10/17 Exenatide [Byetta] 10 unit SC DAILY 11/10/17 Glipizide [Glipizide ER] 10 mg PO DAILY 11/10/17 HYDROcodone 5MG/APAP 325MG 1 tablet PO Q4HR PRN 11/10/17 Hydroxyzine Pamoate 25 mg PO DAILY 11/10/17 Insulin Degludec [Tresiba Flextouch] 0 unit SC DAILY 11/10/17 Insulin Lispro [Humalog Kwikpen] 100 unit SC PRN 11/10/17 Liraglutide [Victoza] 18 unit SC DAILY 11/10/17 Propranolol HCl 10 mg PO DAILY 11/10/17 Sertraline HCl 100 mg PO DAILY 11/10/17 traZODone HCL [Desyrel] 150 mg PO PRN 11/10/17 Acetaminophen W/ Codeine [Tylenol W/ CODEINE #3] 1 ea PO Q6HRS #20 02/01/18 Cyclobenzaprine HCl [Flexeril] 10 mg PO Q8HRS #15 tab 02/01/18
--- NOTE | 2018-02-01 23:46 | CT ---
CLINICAL HISTORY: neck pain COMPARISON: None. TECHNIQUE: CT CERVICAL SPINE WITHOUT IV CONTRAST on 02/01/2018 11:17 PM ACCOUNTING ADMINISTRATOR This exam was performed according to our departmental dose-optimization program, which includes automated exposure control, adjustment of the mA and/or kV according to patient size and/or use of iterative reconstruction technique. FINDINGS: There is no acute fracture. Alignment is anatomic. There is minimal diffuse facet arthritis. There is mild narrowing of the C5-6 disc. Vertebral body heights are preserved. Soft tissues are unremarkable. IMPRESSION: No acute fracture or subluxation. Electronically signed by: Neville Hogan MD 02/01/2018 11:45 PM ACCOUNTING ADMINISTRATOR
[2018-02-02 00:13] VITALS: BP 111/76; TEMP 97.2; O2SAT 91
== END 2018-02-02 00:09 | disposition home or self-care (01) ==
LOC: ER 22:51
DX: M43.6 Torticollis (principal); E11.9 Type 2 diabetes mellitus without complications; I10 Essential (primary) hypertension; J44.9 Chronic obstructive pulmonary disease, unspecified; I25.2 Old myocardial infarction; Z87.891 Personal history of nicotine dependence; Z79.899 Other long term (current) drug therapy; Z79.4 Long term (current) use of insulin; Z95.5 Presence of coronary angioplasty implant and graft; Z88.0 Allergy status to penicillin; Z88.2 Allergy status to sulfonamides; Z88.8 Allergy status to other drugs, medicaments and biological substances
CPT/HCPCS: 72125; J2270; J2405

== ENCOUNTER 2018-02-08 05:37 | Day surgery (SDC) | payer MEDICARE, MEDICAID ==
--- NOTE | 2018-02-06 11:26 | HP ---
CHIEF COMPLAINT: Right knee pain and locking. HISTORY OF PRESENT ILLNESS: Lawrence is a 52-year-old male with a history of pain and locking in the knee. He has had pain that has been going on for quite some time. He has had injections, however, has failed to gain relief. Because of his ongoing pain, he has requested operative intervention. After discussing the risks, benefits and alternatives to that, the patient has given informed consent for knee arthroscopy. MEDICATIONS: 1. Amlodipine. 2. Aspirin. 3. Atorvastatin. 4. Byetta. 5. Cefdinir. 6. Citalopram. 7. Clindamycin. 8. Clopidogrel. 9. Glipizide. 10. Hydrocodone. 11. Hydroxyzine. 12. Levaquin. 13. Lisinopril. 14. Metformin. 15. Methylprednisolone. 16. Nitroglycerin. 17. NovoLog. 18. Propranolol. 19. Sertraline. 20. Trazodone. 21. Tresiba. 22. Trulicity. 23. Victoza. ALLERGIES: BACTRIM, LOSARTAN, TRAMADOL. CODE STATUS: Full code. IMMUNIZATIONS: Up to date. FAMILY HISTORY: None pertinent to today's complaint. SOCIAL HISTORY: The patient does not drink or use any illicit drugs. He does smoke. REVIEW OF SYSTEMS: Negative except as indicated in the History of Present Illness. PHYSICAL EXAMINATION: VITAL SIGNS: Blood pressure 134/91. Pulse 75. Height 6'1". Weight 318 pounds. MENTAL STATUS: The patient is awake, alert, and is able to give a good history and participate in the physical. The patient is oriented to person, place and time. SKIN: Normal tone and turgor. MUSCULOSKELETAL: He is very tender along the medial aspect of the knee. He does have full extension and flexion is to about 120 degrees. He has a warm and well perfused extremity. He has no varus/valgus or anterior/posterior laxity. He has some palpable clicking and he does have pain with patellar mobilization. IMAGING: MRI does show a tear of the meniscus. He does have some arthritic changes on both MRI and x-ray. ASSESSMENT: 1. Meniscus tear. 2. Arthritis. PLAN: The plan at this point is for knee arthroscopy. We have discussed the risks, benefits, and alternatives to that and the patient has given informed consent. #[id number] [facility]
--- NOTE | 2018-02-06 12:03 | RAD ---
EXAM DESCRIPTION: XR CHEST 2 VIEWS CLINICAL HISTORY: Preoperative respiratory evaluation. Z01.811 COMPARISON: None TECHNIQUE: PA/lateral FINDINGS: Heart size is normal. The lungs are clear. No acute bony abnormality. IMPRESSION: No acute cardiopulmonary process. Electronically signed by: Madan Stoner MD 02/06/2018 12:02 PM [facility]
[2018-02-08] MEDS ORDERED: ceFAZolin SODIUM 1 GM VIAL ONE (05:55)
[2018-02-08] MEDS ORDERED: SODIUM CHL 0.9% 100ML MINI-BAG 100 ML IVPB ONE (05:55)
[2018-02-08] MEDS ORDERED: LACTATED RINGERS 1,000 ML ONE (05:55)
[2018-02-08] MEDS ORDERED: MIDAZOLAM INJ 2 MG/2 ML VIAL ONE (06:45)
[2018-02-08] MEDS ORDERED: fentaNYL CITRATE INJ 50 MCG/ML AMP ONE (06:46)
[2018-02-08] MEDS ORDERED: LIDOCAINE 1% 10 ML VIAL INJ ONE (07:00)
[2018-02-08] MEDS ORDERED: raNITIdine HCL INJ 25 MG/ML VIAL ONE (07:00)
[2018-02-08] MEDS ORDERED: SODIUM CHLORIDE 0.9% 50 ML VIAL ONE (07:00)
[2018-02-08] MEDS ORDERED: PHENYLEPHRINE INJ 1ML 10 MG/ML VIAL ONE (07:00)
[2018-02-08] MEDS ORDERED: KETOROLAC TROMETHAMINE INJ 30 MG/ML VIAL ONE (07:00)
[2018-02-08] MEDS ORDERED: DEXAMETHASONE INJ 10 MG/ML VIAL ONE (07:00)
[2018-02-08] MEDS ORDERED: PROPOFOL 200 MG/20 ML VIAL IV ONE (07:00)
[2018-02-08] MEDS ORDERED: ePHEDrine SULF 50 MG/ML ONE (07:00)
[2018-02-08] MEDS ORDERED: METOCLOPRAMIDE HCL INJ 10 MG/2 ML VIAL ONE (07:00)
[2018-02-08] MEDS ORDERED: SUGAMMADEX SODIUM 200 MG/2 ML VIAL IV ONE (07:16)
[2018-02-08] MEDS: ceFAZolin SODIUM 1 GM VIAL ONE ×4 (07:40→08:00)
[2018-02-08] MEDS: BUPIVACAINE 0.5% 30 ML VIAL INJ ONE ×2 (07:44→08:00)
[2018-02-08] MEDS: BUPIVACAINE LIPOSOME 13.3 MG/ML VIAL INJ ONE ×2 (07:44→08:00)
[2018-02-08] MEDS: VANCOMYCIN HCL INJ 1,000 MG VIAL IVPB ONE ×2 (07:45→08:00)
[2018-02-08] MEDS ORDERED: LEVALBUTEROL NEBS 1.25 MG/3 ML VIAL NEB ONE (08:27)
[2018-02-08] MEDS ORDERED: HYDROcodone 5MG/APAP 325MG 1 EA TAB ONE ×2 (09:22)
[2018-02-08 10:14] VITALS: BP 127/75; TEMP 97; O2SAT 95
--- NOTE | 2018-02-09 10:27 | OP ---
DATE OF PROCEDURE: 02/08/18 PREOPERATIVE DIAGNOSIS: 1. Knee pain with possible meniscus tear. POSTOPERATIVE DIAGNOSIS: 1. Osteoarthritis. PROCEDURE: 1. Debridement. SURGEON: Edgar Callejas MD. TUNNEL WORKER: Marino Flannery CST, SA-C. ANESTHESIA: General anesthesia. COMPLICATIONS: None. FINDINGS: 1. Advanced cartilage loss in the medial compartment. 2. Degenerative fraying of the medial meniscus, but no dave tears. 3. Normal anterior cruciate ligament, normal posterior cruciate ligament. 4. Degenerative findings of the lateral compartment. 5. Normal lateral meniscus. 6. Normal lateral gutter. 7. Normal suprapatellar pouch. 8. Advanced cartilage degeneration in the patellofemoral joint. 9. Normal medial gutter. INDICATION: Mr. Bahena has a history of knee pain for which he has undergone multiple injections. He has also had a history of what he describes as clicking and locking. He denies any trauma associated with this and because of failure conservative measures, he requested operative intervention. After discussing the risks, benefits and alternatives to that, the patient has given informed consent. PROCEDURE: The patient was brought to the Operating Room and placed in supine position. General anesthesia was induced and the patient's leg was sterilely prepped and draped. Following prepping and draping, standard anteromedial and anterolateral portals were established. Diagnostic arthroscopy was carried out with the above findings. Attention was then focused on the medial compartment. The chondral surfaces were debrided with a 3.5 mm full radius shaver. The knee was thoroughly irrigated and drained. Following draining of the knee, the wounds were closed with Nylon suture. Sterile dressings were placed. The patient was awoken from anesthesia and taken to Recovery. POSTOPERATIVE PLAN: The patient will be partial weightbearing and will followup with us in two days. #[id number] [facility]
== END 2018-02-08 10:05 | disposition home or self-care (01) ==
LOC: AMB 05:37
PROVIDERS: ATTEND Orthopaedic Surgery
DX: M17.11 Unilateral primary osteoarthritis, right knee (principal); M23.206 Derangement of unspecified meniscus due to old tear or injury, right knee; F17.210 Nicotine dependence, cigarettes, uncomplicated; I10 Essential (primary) hypertension; I25.10 Atherosclerotic heart disease of native coronary artery without angina pectoris; I25.2 Old myocardial infarction; E11.9 Type 2 diabetes mellitus without complications; E66.9 Obesity, unspecified; J44.9 Chronic obstructive pulmonary disease, unspecified; G47.30 Sleep apnea, unspecified; Z68.39 Body mass index [BMI] 39.0-39.9, adult; Z99.89 Dependence on other enabling machines and devices; Z88.1 Allergy status to other antibiotic agents; Z88.8 Allergy status to other drugs, medicaments and biological substances; Z79.84 Long term (current) use of oral hypoglycemic drugs; Z79.82 Long term (current) use of aspirin; Z79.899 Other long term (current) drug therapy
CPT/HCPCS: 01400; 29877; 36415; 36416; 71046; 80048; 80307; 82948; 85025; 93005; 94640; A4216; J0690; J1100; J1885; J2250; J2765; J2780; J3010; J3370; J3490; J7050; J7120; J7614

== ENCOUNTER → 2018-02-17 | Outpatient (CLI) | payer MEDICARE, MEDICAID | LOC: LAB.O 09:08 | PROVIDERS: ATTEND Orthopaedic Surgery | DX: M75.101 Unspecified rotator cuff tear or rupture of right shoulder, not specified as traumatic (principal) ==

== ENCOUNTER → 2018-02-22 | Outpatient (CLI) | payer MEDICARE, MEDICAID ==
--- NOTE | 2018-02-22 10:42 | CT ---
Study: CT Arthrogram of the Right Shoulder. Indication: ROTATOR CUFF TEAR OR RUPTURE OF RIGHT SHOULDER NOT SPEC. TRAU Technique: Axial CT of the right shoulder was performed after intra-articular injection of contrast. Coronal and sagittal reformats performed. Please see the accompanying report regarding the procedural portion of this exam. This exam was performed according to our departmental dose-optimization program, which includes automated exposure control, adjustment of the mA and/or kV according to patient size and/or use of iterative reconstruction technique. Comparison: None. Findings: Severe hypertrophic AC joint osteoarthritis with moderate contouring of the underlying supraspinatus muscle belly. Mild type III acromial morphology medially without downsloping. High-grade articular, effectively full-thickness tearing superior half of the subscapularis tendon insertion noted. The tendon appears attenuated throughout. Teres minor tendon intact. No contrast-filled tear defect of the supraspinatus or infraspinatus tendons identified, however both tendons appear slightly attenuated and elongated with medial myotendinous retraction by approximately 10 mm. There is trace subacromial subdeltoid bursal contrast anteriorly, likely secondary to the subscapularis tendon tearing. Long head biceps tendon intact. Circumferential labral truncation noted. No acute fracture or advanced glenohumeral joint osteoarthritis. Impression: Attenuation and elongation supraspinatus and infraspinatus tendons with medial myotendinous retraction by 10 mm. No contrast-filled tear. Full-thickness tearing superior half of the subscapularis tendon insertion. Circumferential labral truncation noted. Severe hypertrophic AC joint osteoarthritis. Electronically signed by: Vadim Whiteside MD 02/22/2018 10:40 AM [facility]
--- NOTE | 2018-02-22 16:32 | RAD ---
EXAM DESCRIPTION: Arthrogram Shoulder Right: RF CLINICAL HISTORY: ROTATOR CUFF TEAR. Patient unable to tolerate MRI due to claustrophobia. COMPARISON: Post-arthrogram CT scan of the right shoulder same date. Arthrogram right shoulder 04/06/2017. TECHNIQUE: The procedure was explained to the patient with risks and benefits. The patient gave verbal and written consent. Contrast mixture of 10 mL non-ionic 300 contrast and 10 mL of sterile normal saline was prepared. Patient supine on the fluoroscopic table with right shoulder in external rotation. The anterior mid superior right glenohumeral joint was localized by fluoroscopy. The skin was marked, then prepped and draped in a sterile fashion. Intradermal, subcutaneous and intramuscular 1% lidocaine was given for topical anesthesia. A 3.5 inch, 22-gauge needle was introduced into the anterior superior right glenohumeral joint capsule under fluoroscopic visualization. A test injection of 2 cc of non-ionic 300 strength IV contrast was performed under fluoroscopy. Additional 8 CC of contrast mixture (10 mL saline and 10 mL non-ionic 300 strength IV contrast) was then injected under fluoroscopy. The patient tolerated the procedure well. Active exercise. Patient was transferred to the CT suite for spiral-axial and reconstruction imaging. No immediate complications. One frontal AP image with right humeral head in external rotation, recorded for the patient's permanent medical record. Total fluoroscopic time was less than 1 minute. DAP: 17.1 Gy-cm2. IMPRESSION: Successful, fluoroscopic-guided saline/contrast arthrogram of the right shoulder, prior to CT arthrography of the right shoulder. Please see accompanying report on that examination. Electronically signed by: Marino Johnston MD 02/22/2018 4:30 PM [facility]
== END ==
LOC: CT 09:00
PROVIDERS: ATTEND Orthopaedic Surgery
DX: M75.101 Unspecified rotator cuff tear or rupture of right shoulder, not specified as traumatic (principal); M19.011 Primary osteoarthritis, right shoulder

== ENCOUNTER → 2018-03-24 | Outpatient (CLI) | payer MEDICARE, MEDICAID ==
--- NOTE | 2018-03-24 13:59 | CT ---
EXAM DESCRIPTION: Chest w/o Contrast : Computed Tomography. CLINICAL HISTORY: 52 years Male NICOTINE DEPENDENCE COMPARISON: None. TECHNIQUE: Spiral-axial scans at 5 x 5 mm intervals through the lungs and thorax without IV contrast. 2.5 x 5 mm lung algorithm axial reconstructions. Coronal and sagittal 2.0 Mm reconstructions. Total Exam DLP: 1380.86 mGy-cm. This exam was performed according to our departmental dose-optimization program which includes automated exposure control, adjustment of the mA and/or kV according to patient size and/or use of iterative reconstruction technique; to reduce radiation dose to as low as reasonably achievable (ALARA). Nodule measurements under 10 mm are given as mean value of 3 axes diameters. FINDINGS: Lungs and large airways: Multiple bilateral small nodular densities in the upper lobes and thickening of the septa. Minimal bilateral perihilar peribronchial wall thickening. Trace amount of bilateral basilar atelectasis. No abnormal nodules bilaterally. No masses or focal infiltrates bilaterally. Pleural spaces: Negative. Mediastinum and Indu: Evaluation limited due to lack of IV contrast. Small nodules with no gross soft tissue masses. Great vessels and Heart: Evaluation limited due to lack of IV contrast. Atherosclerotic calcification of the coronary arteries. Soft tissues of neck base, axillae, and chest wall: Evaluation limited due to lack of IV contrast.. Unremarkable Upper abdomen: No free fluid or free air in the included peritoneal space. 2.5 x 1.5 cm mass in the right adrenal gland consistent with an adenoma. Small radiodense stone in the gallbladder. Other included organs are unremarkable. Osseous structures: Anterior spondylosis and exaggerated kyphosis at T12-L1. Facet arthrosis at the lower levels of the thoracic spine. Minimal lordosis of the inferior thoracic spine. IMPRESSION: 1. Parenchymal changes in the lungs more involving the upper lung mazariegos, consistent with clinical history. No abnormal nodules, no lateral masses or focal infiltrates. [facility] Best Practice recommendations are no further chest CT follow-up recommended unless there are clinical or other imaging changes. Electronically signed by: Marino Johnston MD 03/24/2018 1:57 PM OUTLET MANAGER
== END ==
LOC: CT 11:00
PROVIDERS: ATTEND Family Medicine
DX: F17.218 Nicotine dependence, cigarettes, with other nicotine-induced disorders (principal)

== ENCOUNTER 2018-04-04 05:36 | Day surgery (SDC) | payer MEDICARE, MEDICAID ==
--- NOTE | 2018-04-03 09:12 | HP ---
CHIEF COMPLAINT: Right shoulder pain. HISTORY OF PRESENT ILLNESS: Lawrence is a 52-year-old male with a history of shoulder pain that has been getting progressively worse. He has had pain that has been associated with activities. Unfortunately, he failed to gain relief. Because of his ongoing pain, he has requested operative intervention. After discussing the risks, benefits and alternatives to that, he has given informed consent. PAST SURGICAL HISTORY: 1. Right knee arthroscopy. 2. Cardiac stent placement. 3. Bilateral foot surgery. 4. Right ankle surgery. 5. Left femoral surgery of undetermined etiology. MEDICATIONS: 1. Hydrocodone. 2. Amlodipine. 3. Aspirin. 4. Atorvastatin. 5. Byetta. 6. Cefdinir. 7. Citalopram. 8. Clindamycin. 9. Clopidogrel. 10. Cyclobenzaprine. 11. Glipizide. 12. Hydroxyzine. 13. Levaquin. 14. Lisinopril. 15. Meloxicam. 16. Metformin. 17. Methylprednisolone. 18. Nitroglycerin. 19. NovoLog. 20. Propranolol. 21. Sertraline. 22. Trazodone. 23. Tresiba. 24. Trulicity. 25. Victoza. ALLERGIES: BACTRIM, LOSARTAN, TRAMADOL. FAMILY HISTORY: None pertinent to today's complaint. SOCIAL HISTORY: The patient does not drink, smoke or use any illicit drugs. REVIEW OF SYSTEMS: Negative except as indicated in the History of Present Illness. PHYSICAL EXAMINATION: VITAL SIGNS: Blood pressure 129/72. Pulse 65. Height 6'1". Weight 327 pounds. MENTAL STATUS: The patient is awake, alert, and is able to give a good history and participate in the physical. The patient is oriented to person, place and time. SKIN: Normal tone and turgor. MUSCULOSKELETAL: The patient has pretty severe pain to palpation in the subacromial space. He has intact sensation in the extremity. He has intact seasonal tax preparer strength. He has a warm and well perfused extremity. Sensation is intact. He has pain with abduction beginning at 80 degrees and forward flexion at 80 degrees. He is able to abduct to about 140 degrees. Forward flexion is only to about 100 degrees today. ASSESSMENT: 1. Rotator cuff tear. PLAN: Lawrence has had failure of conservative measures. He has had CT scan indicating that he does indeed have a tear of his rotator cuff. Because of his failure conservative measures, he has requested operative intervention. We have discussed the risks, benefits, and alternatives to that and the patient has given informed consent. #[id number] [facility]
[2018-04-11] MEDS ORDERED: LACTATED RINGERS 1,000 ML IVS ONE ×2 (05:55→06:15)
[2018-04-11] MEDS ORDERED: BUPIVACAINE 0.5% 30 ML VIAL INJ ONE ×3 (06:28→07:58)
[2018-04-11] MEDS ORDERED: VANCOMYCIN HCL INJ 1,000 MG in SODIUM CHLORIDE 0.9% 250ML 250 ML IVPB ONE (06:28)
[2018-04-11] MEDS ORDERED: BUPIVACAINE LIPOSOME 13.3 MG/ML VIAL INJ ONE ×3 (06:29→08:50)
[2018-04-11] MEDS ORDERED: MIDAZOLAM INJ 2 MG/2 ML VIAL IV ONE (06:30)
[2018-04-11] MEDS ORDERED: ACETAMINOPHEN IV 1000 MG/100 ML BOTTLE IV ONE (06:30)
[2018-04-11] MEDS ORDERED: ROCURONIUM BROMIDE 10 MG/ML VIAL IV ONE (06:30)
[2018-04-11] MEDS ORDERED: fentaNYL CITRATE INJ 50 MCG/ML AMP IV ONE (06:30)
[2018-04-11] MEDS ORDERED: CLINDAMYCIN IV 900MG 50 ML IVPB ONE (06:58)
[2018-04-11] MEDS ORDERED: VANCOMYCIN HCL INJ 1,000 MG VIAL IVPB ONE ×3 (07:44→08:49)
[2018-04-11] MEDS ORDERED: HYDROmorphone HCL INJ 2 MG/ML VIAL IV ONE (07:58)
[2018-04-11] MEDS ORDERED: KETOROLAC TROMETHAMINE INJ 30 MG/ML VIAL IV ONE (10:00)
[2018-04-11] MEDS ORDERED: raNITIdine HCL INJ 25 MG/ML VIAL IV ONE (10:00)
[2018-04-11] MEDS ORDERED: DEXAMETHASONE INJ 10 MG/ML VIAL IV ONE (10:00)
[2018-04-11] MEDS ORDERED: PROPOFOL 200 MG/20 ML VIAL IV ONE (10:00)
[2018-04-11] MEDS ORDERED: ePHEDrine SULF 50 MG/ML IV ONE (10:00)
[2018-04-11] MEDS ORDERED: LIDOCAINE 1% 10 ML VIAL INJ ONE (10:00)
[2018-04-11] MEDS ORDERED: METOCLOPRAMIDE HCL INJ 10 MG/2 ML VIAL IV ONE (10:00)
[2018-04-11] MEDS ORDERED: GLYCOPYRROLATE 0.2 MG/ML VIAL IV ONE (10:00)
[2018-04-11] MEDS ORDERED: ELECTROLYTE-A 1,000 ML IVS ONE (10:01)
[2018-04-11] MEDS ORDERED: LEVALBUTEROL NEBS 1.25 MG/3 ML VIAL NEB ONE ×2 (10:17→10:35)
[2018-04-11] MEDS ORDERED: HYDROcodone 5MG/APAP 325MG 1 EA TAB PO ONE (11:28)
[2018-04-11 12:59] VITALS: BP 115/72; TEMP 98.7; O2SAT 93
--- NOTE | 2018-04-13 09:23 | OP ---
DATE OF PROCEDURE: 04/04/18 PREOPERATIVE DIAGNOSIS: 1. Right rotator cuff tear. POSTOPERATIVE DIAGNOSIS: 1. Right rotator cuff tear. PROCEDURE: 1. Rotator cuff repair. 2. Distal clavicle resection. 3. Subacromial decompression. SURGEON: Edgar Callejas MD. PROTOCOL OFFICER: Marino Flannery CST, SA-C. ANESTHESIA: General anesthesia. COMPLICATIONS: None. FINDINGS: Approximately 8 mm tear in the supraspinatus at the critical zone. INDICATION: Mr. Bahena has a history of pain associated with rotator cuff tear. Unfortunately, he has been unable to get relief conservatively. Because of that, he has requested operative intervention. After discussing the risks, benefits and alternatives to that, the patient has given informed consent for that. PROCEDURE: The patient was brought to the Operating Room and placed in the supine position. General anesthesia was induced and the patient's shoulder and arm were sterilely prepped and draped. Following prepping and draping, an incision was made at the lateral border of the acromion. Dissection was carried down to the deltoid and a split in the deltoid between the anterior and middle heads was made. A bursectomy was performed, followed by an acromioplasty. The rotator cuff was identified and the cuff was examined with notation of the aforementioned tear. Following that, the footprint was debrided and a double- loaded suture anchor was used at the footprint and a lateral row repair was then placed. The arm was taken through a range of motion and there was no undue stress on the cuff. Following that, the wound was irrigated and the deltoid was reapproximated. The acromioclavicular joint was identified and full thickness periosteal flaps were developed. Following that, the distal approximately 8 mm was resected. The periosteal flaps were reapproximated over the defect. The wound was very thoroughly irrigated and closed with a combination of running and interrupted subcuticular stitches. Sterile dressings were placed. The patient was placed in a sling and awoken from anesthesia and taken to Recovery. POSTOPERATIVE PLAN: He will be limited with regards to range of motion and lifting. He will followup with us in approximately two days. #[id number] [facility]
== END 2018-04-11 12:00 | disposition home or self-care (01) ==
LOC: AMB 05:36
PROVIDERS: ATTEND Orthopaedic Surgery
DX: M75.101 Unspecified rotator cuff tear or rupture of right shoulder, not specified as traumatic (principal); I10 Essential (primary) hypertension; I25.10 Atherosclerotic heart disease of native coronary artery without angina pectoris; G47.30 Sleep apnea, unspecified; E11.9 Type 2 diabetes mellitus without complications; E66.01 Morbid (severe) obesity due to excess calories; J44.9 Chronic obstructive pulmonary disease, unspecified; Z86.010 Personal history of colon polyps; Z88.0 Allergy status to penicillin; Z88.5 Allergy status to narcotic agent; Z88.1 Allergy status to other antibiotic agents; Z88.8 Allergy status to other drugs, medicaments and biological substances; Z95.5 Presence of coronary angioplasty implant and graft; Z79.1 Long term (current) use of non-steroidal anti-inflammatories (NSAID); Z79.82 Long term (current) use of aspirin; Z79.899 Other long term (current) drug therapy
CPT/HCPCS: 01630; 23130; 23412; 36416; 80307; 82948; 94640; J1100; J1170; J1885; J2250; J2765; J2780; J3010; J3370; J3490; J7050; J7120; J7614

== ENCOUNTER 2018-05-28 14:22 | Emergency (ER) | payer MEDICARE, MEDICAID ==
[2018-05-28] MEDS ORDERED: NITROGLYCERIN 0.4 MG 25 EA TAB SL ONE (14:25)
[2018-05-28] MEDS: NITROGLYCERIN 0.4 MG 25 EA TAB SL ONE ×2 (14:29→14:35)
[2018-05-28] MEDS ORDERED: NITROGLYCERIN/D5W IV 250 ML IVS ONE (14:41)
[2018-05-28] MEDS ORDERED: ASPIRIN TABLET 325 MG TAB ONE (14:49)
[2018-05-28] MEDS ORDERED: NITROGLYCERIN/D5W IV 50,000 MCG in PREMIX BOTTLE 1 BOTTLE IVS SCH (14:50)
--- NOTE | 2018-05-28 14:56 | RAD ---
PROCEDURE: XR Chest, 1 View CLINICAL INDICATION: The patient is 52 years old and is Male; severe acute chest pain TECHNIQUE: Frontal view of the chest. COMPARISON: Prior study from 02/06/2018 FINDINGS: LUNGS: Unremarkable. No consolidation. There are electrocardiogram leads present. There is some limitation due to body habitus. There are low lung volumes consistent with hypoventilation. PLEURAL SPACE: Unremarkable. No pneumothorax. HEART: Unremarkable. No cardiomegaly. MEDIASTINUM: Unremarkable. BONES/JOINTS: Unremarkable.No acute fracture noted. IMPRESSION: No active disease is seen in the chest. Low lung volumes and body habitus compromises study. Electronically signed by: Fred Garner MD 05/28/2018 2:53 PM CDT
[2018-05-28] MEDS ORDERED: MORPHINE SULFATE INJ 10 MG/ML VIAL IV ONE (14:58)
[2018-05-28] MEDS ORDERED: ASPIRIN TABLET 325 MG TAB PO ONE (15:06)
--- NOTE | 2018-05-28 18:21 | CT ---
EXAM DESCRIPTION: Chest w/o Contrast CLINICAL HISTORY:52 years Male, crushing acute cp with elev ddimer Comparison: None TECHNIQUE: Contiguous axial CT images of the chest were obtained. Sagittal and coronal reformats were reviewed. This exam was performed according to our departmental dose-optimization program, which includes automated exposure control, adjustment of the mA and/or kV according to patient size and/or use of iterative reconstruction technique. FINDINGS: Lungs: No focal lung consolidation. No pleural effusion. No pneumothorax. Thoracic aorta: Unremarkable. Heart: Normal in size. Coronary artery calcifications versus vascular stent. No pericardial effusion. Mediastinum: No pathologic sized middle mediastinal lymphadenopathy. Upper abdomen: Partially imaged. No acute abnormality. Bones: Unremarkable. Soft tissues: Unremarkable IMPRESSION: No acute abnormality. Electronically signed by: Kevin Mcmullen DO 05/28/2018 6:18 PM CDT
[2018-05-28] MEDS ORDERED: HEPARIN SODIUM (PORCINE) 5,000 U/ML VIAL IV ONE (18:25)
--- NOTE | 2018-05-28 18:35 | ED.PDOC ---
History of Present Illness - General Chief Complaint: Chest Pain/TX Time Seen by Provider: 05/28/18 14:35 Source: patient Exam Limitations: no limitations - History of Present Illness Initial Comments: the patient's a 52-year-old male presenting to emergency room secondary to severe acute onset crushing chest pain with associated shortness of breath. The patient was smoking outside when it hit. 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 Pain had been going approximately 20 minutes prior to arrival. The patient was started with aspirin and nitroglycerin. He received 2 doses of oral nitroglycerin with 60% improvement in pain. After that a nitroglycerin drip was started and the patient was given some additional morphine. Timing/Duration: unsure Severity: moderate Improving Factors: nothing Worsening Factors: nothing Associated Symptoms: chest pain Allergies/Adverse Reactions: Allergies Sulfamethoxazole w/Trimethoprim [From Bactrim] Allergy (Verified 02/01/18 23:01) Tramadol Allergy (Verified 02/01/18 23:01) Penicillin G Adverse Reaction (Verified 02/01/18 23:01) Sulfa Antibiotics Adverse Reaction (Verified 02/01/18 23:01) Home Medications: Ambulatory Orders Atorvastatin Calcium [Lipitor] 20 mg PO DAILY 11/10/17 Citalopram Hydrobromide [Citalopram] 20 mg PO DAILY 11/10/17 Clopidogrel Bisulfate [Plavix] 75 mg PO DAILY 11/10/17 Dulaglutide [Trulicity] 0.75 unit SC WKLY 11/10/17 Glipizide [Glipizide ER] 10 mg PO BID 11/10/17 Hydroxyzine Pamoate 25 mg PO TID 11/10/17 Insulin Degludec [Tresiba Flextouch] 70 unit SC DAILY 11/10/17 Propranolol HCl 10 mg PO TID 11/10/17 Sertraline HCl 100 mg PO DAILY 11/10/17 traZODone HCL [Desyrel] 150 mg PO PRN 11/10/17 Aspirin [Aspirin Low Strength] 81 mg PO DAILY 04/03/18 Insulin Aspart [Novolog Flexpen] 10 unit SC QID 04/03/18 Review of Systems - Review of Systems Constitutional: States: no symptoms reported EENTM: States: no symptoms reported Respiratory: States: short of breath Cardiology: States: chest pain Gastrointestinal/Abdominal: States: no symptoms reported Genitourinary: States: no symptoms reported Musculoskeletal: States: no symptoms reported Skin: States: no symptoms reported Neurological: States: anxiety Endocrine: States: no symptoms reported All other Systems: No Change from Baseline Past Medical History (General) - Patient Medical History Hx Seizures: No Hx Stroke: No Hx Dementia: No Hx Asthma: No Hx of COPD: Yes Hx Cardiac Disorders: Yes - Dyslipidemia; TX x 2; stent placement Hx Congestive Heart Failure: No Hx Pacemaker: No Hx Hypertension: Yes Hx Thyroid Disease: No Hx Diabetes: Yes Hx Gastroesophageal Reflux: No Hx Renal Disease: No Hx Cancer: No Hx of HIV: No Hx Hepatitis C: No Hx MRSA: No Surgical History: other - Vaccination History Hx Tetanus, Diphtheria Vaccination: No Hx Influenza Vaccination: No Hx Pneumococcal Vaccination: No - Social History Hx Tobacco Use: Yes Hx Chewing Tobacco Use: No Hx Alcohol Use: No Hx Substance Use: No Hx Substance Use Treatment: No Hx Depression: No Hx Physical Abuse: No Hx Emotional Abuse: No Hx Suspected Abuse: No Family Medical History - Family History Father Family History: Unknown Living Status: Hx Family Asthma: No Hx Family Congestive Heart Failure: Yes Hx Family Hypertension: Yes Hx Family Stroke: No Hx Cardiac Disease: Yes Hx Family Diabetes: Yes Hx Family Cancer: Yes - prostate cancer Mother Family History: No Known Physical Exam - Physical Exam General Appearance: Alert, Anxious, Obvious distress, Other - he patient is somewhat pale and diaphoretic Eye Exam: bilateral normal Ears, Nose, Throat: hearing grossly normal, normal ENT inspection Neck: full range of motion, supple Respiratory: lungs clear, normal breath sounds, other - the patient is dyspneic. Initially he is overbreathing. Cardiovascular/Chest: normal peripheral pulses, no edema, tachycardia - initially tachycardic in the 110s with PVCs Peripheral Pulses: radial,right: 2+, radial,left: 2+ Gastrointestinal/Abdominal: non tender, soft Rectal Exam: deferred Back Exam: no CVA tenderness, no vertebral tenderness Extremity: non-tender, normal inspection, no pedal edema, normal capillary refill Neurologic: pack master II-XII nml as tested, alert, oriented x 3 Skin Exam: diaphoresis, pallor Comments: Vital Signs - 24 hr 05/28/18 05/28/18 05/28/18 14:22 14:31 14:40 Temperature 98.3 F Pulse Rate [ 101 H 114 H 100 H Apical] Respiratory 24 24 24 Rate Blood Pressure 156/101 141/99 113/63 [Right Arm] O2 Sat by Pulse 98 96 96 Oximetry 05/28/18 05/28/18 05/28/18 15:01 16:01 16:30 Temperature Pulse Rate [ 97 H 96 H 89 Apical] Respiratory 20 20 20 Rate Blood Pressure 118/73 100/79 112/67 [Right Arm] O2 Sat by Pulse 93 L 94 L 93 L Oximetry 05/28/18 05/28/18 17:30 18:30 Temperature Pulse Rate [ 80 92 H Apical] Respiratory 20 21 Rate Blood Pressure 121/89 107/61 [Right Arm] O2 Sat by Pulse 91 L 91 L Oximetry Progress - Progress Progress: 05/28/18 18:39 the patient's a 52-year-old male with a history of coronary artery disease who was out smoking when he developed sudden severe chest pain. The patient rated the pain a 10 out of 10 initially. The patient has responded well to nitroglycerin first in the tablet form that in the IV drip form. He has received 1 dose of morphine. He has received aspirin and heparin. His chest pains currently rated at a 1. no Plavix has been given to this point.the patient has been discussed with Dr. Lundberg and Dr Cheatham and will be admitted to [facility]. He is nothing by mouth at this point. He will need repeat cardiac enzymes. He will need his diabetes followed. critical care time spent in management of unstable angina is 40 minutes excluding otherwise billable procedures. 05/28/18 19:16 05/28/18 19:17 - Results/Orders Results/Orders: chest x-ray showed no acute processes. CT scan of the chest was initially supposed to be a CT angiogram however the IV infiltrated at the start of the scan. There is no obvious evidence of any aortic pathology. No evidence of any mediastinal pathology. No evidence of any new pulmonary pathology. Laboratory Tests 05/28/18 05/28/18 05/28/18 14:48 14:48 14:48 WBC 10.2 RBC 4.84 Hgb 13.8 L Hct 42.2 MCV 87.1 MCH 28.5 MCHC 32.7 L RDW 15.4 H Plt Count 286 MPV 8.5 Absolute Neuts (auto) 6.80 Absolute Lymphs (auto) 2.70 Absolute Monos (auto) 0.60 Absolute Eos (auto) 0.10 Absolute Basos (auto) 0.00 Neutrophils % 66.4 Lymphocytes % 26.3 Monocytes % 5.4 Eosinophils % 1.5 Basophils % 0.4 PT 9.5 INR 0.95 PTT (SP) 26.3 D-Dimer, Quantitative 1.31 H* Sodium 136 Potassium 3.7 Chloride 99 L Carbon Dioxide 27 Anion Gap 13.7 BUN 9 Creatinine 0.96 BUN/Creatinine Ratio 9.4 L Random Glucose 183 H Serum Osmolality 275.3 Calcium 8.6 Magnesium Total Bilirubin < 0.2 L AST 23 ALT 27 Alkaline Phosphatase 144 H Creatine Kinase 62 CK-MB (CK-2) 1.4 CK-MB (CK-2) % Not Reportable Troponin I < 0.02 B-Natriuretic Peptide 12.0 Serum Total Protein 7.2 Albumin 3.4 Globulin 3.8 H Albumin/Globulin Ratio 0.9 L 05/28/18 05/28/18 14:48 16:32 WBC RBC Hgb Hct MCV MCH MCHC RDW Plt Count MPV Absolute Neuts (auto) Absolute Lymphs (auto) Absolute Monos (auto) Absolute Eos (auto) Absolute Basos (auto) Neutrophils % Lymphocytes % Monocytes % Eosinophils % Basophils % PT INR PTT (SP) D-Dimer, Quantitative Sodium Potassium Chloride Carbon Dioxide Anion Gap BUN Creatinine BUN/Creatinine Ratio Random Glucose Serum Osmolality Calcium Magnesium 2.1 Total Bilirubin AST ALT Alkaline Phosphatase Creatine Kinase 61 CK-MB (CK-2) 1.2 CK-MB (CK-2) % Not Reportable Troponin I < 0.02 B-Natriuretic Peptide Serum Total Protein Albumin Globulin Albumin/Globulin Ratio EKG shows normal sinus rhythm at 96 bpm. Normal axis. Shallow T waves but no ST segment changes that appear acute or consistent with active ischemia. Normal QT interval. Normal R-wave progression. Small Q waves in inferior leads. Repeat EKG performed 40 minutes later shows occasional PVCs. No other new changes. Departure - Departure Clinical Impression: Unstable angina Disposition: Transfer to Hospital Condition: Serious Departure Forms: ED Discharge - Pt. Copy, Patient Portal Self Enrollment Referrals: Nakul Torres MD [Primary Care Provider] - 1-2 Weeks Home Medications: Ambulatory Orders Atorvastatin Calcium [Lipitor] 20 mg PO DAILY 11/10/17 Citalopram Hydrobromide [Citalopram] 20 mg PO DAILY 11/10/17 Clopidogrel Bisulfate [Plavix] 75 mg PO DAILY 11/10/17 Dulaglutide [Trulicity] 0.75 unit SC WKLY 11/10/17 Glipizide [Glipizide ER] 10 mg PO BID 11/10/17 Hydroxyzine Pamoate 25 mg PO TID 11/10/17 Insulin Degludec [Tresiba Flextouch] 70 unit SC DAILY 11/10/17 Propranolol HCl 10 mg PO TID 11/10/17 Sertraline HCl 100 mg PO DAILY 11/10/17 traZODone HCL [Desyrel] 150 mg PO PRN 11/10/17 Aspirin [Aspirin Low Strength] 81 mg PO DAILY 04/03/18 Insulin Aspart [Novolog Flexpen] 10 unit SC QID 04/03/18 Transfer to Outside Facility - Transfer Information Accepting Provider:: dr Cheatham Accepting Facility: [facility] Reason for Transfer: required specialist not available
[2018-05-28] MEDS ORDERED: HYDROcodone 10MG/APAP 325MG 1 EA TAB PO ONE (19:56)
[2018-05-28 22:35] VITALS: BP 112/76; TEMP 97.8; O2SAT 95
== END 2018-05-28 21:05 | disposition short-term general hospital (02) ==
LOC: ER 14:22
DX: I20.0 Unstable angina (principal); R06.02 Shortness of breath; I49.3 Ventricular premature depolarization; I25.10 Atherosclerotic heart disease of native coronary artery without angina pectoris; I25.2 Old myocardial infarction; J44.9 Chronic obstructive pulmonary disease, unspecified; E78.5 Hyperlipidemia, unspecified; I10 Essential (primary) hypertension; E11.9 Type 2 diabetes mellitus without complications; F17.200 Nicotine dependence, unspecified, uncomplicated; Z95.5 Presence of coronary angioplasty implant and graft; Z79.4 Long term (current) use of insulin; Z79.82 Long term (current) use of aspirin; Z79.899 Other long term (current) drug therapy; Z88.2 Allergy status to sulfonamides; Z88.5 Allergy status to narcotic agent; Z88.0 Allergy status to penicillin
CPT/HCPCS: 36415; 71045; 71250; 80053; 82550; 82553; 82948; 83735; 83880; 84484; 85025; 85379; 85610; 85730; 93005; J1644; J2270

== ENCOUNTER → 2018-08-16 | Outpatient (CLI) | payer MEDICARE, MEDICAID ==
--- NOTE | 2018-08-16 12:01 | NM ---
EXAM DESCRIPTION: Hepatobiliar w/CCK CLINICAL HISTORY: Cholelithiasis COMPARISON: CT chest dated March 24, 2018 TECHNIQUE: Routine hepatobiliary scan was performed following intravenous administration of 6.4 mCi technetium 99m Choletec. Slow intravenous infusion of 3 mcg of sincalide was used to stimulate gallbladder contraction. FINDINGS: Hepatobiliary scan shows prompt accumulation of the radiopharmaceutical within the liver and excretion into the biliary ductal system, gallbladder, and small bowel. Gallbladder ejection fraction is assessed following slow intravenous infusion of sincalide. Patient reports duplication of abdominal symptoms with sincalide infusion. Gallbladder ejection fraction is calculated up to 79%. IMPRESSION: 1. Visualization of the gallbladder essentially excludes acute cholecystitis. 2. Normal range of gallbladder ejection fraction at 79% (normal range is greater than 35%). 3. Patient reports duplication of abdominal symptoms during gallbladder stimulation phase of the exam with slow intravenous infusion of sincalide. Electronically signed by: Mitchell Hayes MD 08/16/2018 11:59 AM CDT
== END ==
LOC: NM 08:00
PROVIDERS: ATTEND Surgery
DX: K80.10 Calculus of gallbladder with chronic cholecystitis without obstruction (principal)
CPT/HCPCS: 78227; A9537

== ENCOUNTER → 2018-09-11 | Outpatient (CLI) | payer MEDICARE, MEDICAID | LOC: GMAJ 16:51 | PROVIDERS: ATTEND Family Medicine | DX: K80.20 Calculus of gallbladder without cholecystitis without obstruction (principal) ==

== ENCOUNTER → 2018-09-12 | Outpatient (CLI) | payer MEDICARE, MEDICAID ==
--- NOTE | 2018-09-12 12:33 | CT ---
TECHNIQUE: Axial images of the lumbar spine were obtained with multiple reconstructions provided. This exam was performed according to our departmental dose-optimization program, which includes automated exposure control, adjustment of the mA and/or kV according to patient size and/or use of iterative reconstruction technique. CLINICAL HISTORY PROVIDED: SPINAL STENOSIS LUMBAR REGION COMPARISON: 07/09/2015 FINDINGS: Five lumbar type vertebral bodies are present. Alignment: No acute subluxation. Degenerative retrolisthesis of L1 on L2, L2 on L3 and L5 on S1. Fracture: No acute fracture. Stable anterior wedging of the L1 vertebral body. Paraspinal Soft Tissues/ Retroperitoneum: Minimal atherosclerotic plaque in the normal caliber abdominal aorta. T12/L1: Disc space narrowing with vacuum disc phenomenon. Diffuse disc bulge osteophyte complex. Mild central canal stenosis. Mild bilateral neural foraminal narrowing. Stable chronic facet changes dating back to 07/09/2015, likely reflecting a remote distraction injury. L1/2: Diffuse disc bulge osteophyte complex. Mild bilateral neural foraminal narrowing. L2/3: Moderate right and mild left neural foraminal narrowing. Diffuse disc bulge osteophyte complex. Minimal left facet hypertrophy. L3/4: No significant central canal stenosis. No significant neural foraminal narrowing. Bilateral facet hypertrophy. L4/5: Mild right neural foraminal narrowing. No significant osseous central canal stenosis. Moderate bilateral facet hypertrophy. L5/S1: Moderate right and mild left neural foraminal narrowing. No significant central canal stenosis. Moderate bilateral facet hypertrophy. IMPRESSION: 1. Multilevel lumbar spondylosis with associated facet degenerative changes resulting in multilevel neural foraminal narrowing. 2. Stable chronic findings at T12/L1. No acute fracture or subluxation. Electronically signed by: Elio Zendejas MD 09/12/2018 12:31 PM CDT
== END ==
LOC: CT 09:52
PROVIDERS: ATTEND Family Medicine
DX: M48.061 Spinal stenosis, lumbar region without neurogenic claudication (principal); M47.896 Other spondylosis, lumbar region

== ENCOUNTER 2018-11-21 19:42 | Emergency (ER) | payer MEDICARE, MEDICAID | END 2018-11-21 20:20 | disposition left against medical advice (07) | LOC: ER 19:42 | DX: S99.921A Unspecified injury of right foot, initial encounter (principal); Z53.21 Procedure and treatment not carried out due to patient leaving prior to being seen by health care provider ==

== ENCOUNTER 2018-11-23 06:04 | Emergency (ER) | payer MEDICARE, MEDICAID ==
[2018-11-23 06:22] VITALS: O2SAT 98
[2018-11-23] MEDS ORDERED: LIDOCAINE 1% W/ EPINEPHRINE 20 ML VIAL INJ ONE (06:27)
--- NOTE | 2018-11-23 06:49 | ED.PDOC ---
History of Present Illness - General Chief Complaint: GI Problem Stated Complaint: rectal bleeding Time Seen by Provider: 11/23/18 06:17 Source: patient Exam Limitations: no limitations - History of Present Illness Initial Comments: the patient is a 53-year-old male presenting to the emergency room secondary to waking up with evidence of rectal bleeding. No pain. This occurred about an hour prior to arrival. The patient does take aspirin and Plavix. He had a stent placed about 6 or 7 months ago. he has had a history of hemorrhoids in the past. No pain currently. No syncope or near syncope. No history of recent anemia. Additionally he does have what appears to be a large plantar wart to the distal central aspect of his right foot giving him significant pain with walking.estimated blood loss is probably 10 cc.the patient actually woke up with blood in his bed. No bowel movement. Timing/Duration: 1-3 hours Severity: mild Improving Factors: nothing Worsening Factors: nothing Associated Symptoms: denies symptoms Allergies/Adverse Reactions: Allergies Sulfamethoxazole w/Trimethoprim [From Bactrim] Allergy (Verified 11/23/18 06:45) Tramadol Allergy (Verified 11/23/18 06:45) Penicillin G Adverse Reaction (Verified 11/23/18 06:45) Sulfa Antibiotics Adverse Reaction (Verified 11/23/18 06:45) Home Medications: Ambulatory Orders Atorvastatin Calcium [Lipitor] 20 mg PO DAILY 11/10/17 Citalopram Hydrobromide [Citalopram] 20 mg PO DAILY 11/10/17 Clopidogrel Bisulfate [Plavix] 75 mg PO DAILY 11/10/17 Dulaglutide [Trulicity] 0.75 unit SC WKLY 11/10/17 Glipizide [Glipizide ER] 10 mg PO BID 11/10/17 Hydroxyzine Pamoate 25 mg PO TID 11/10/17 Insulin Degludec [Tresiba Flextouch] 70 unit SC DAILY 11/10/17 Propranolol HCl [Propranolol Hydrochloride] 10 mg PO TID 11/10/17 Sertraline HCl 100 mg PO DAILY 11/10/17 traZODone HCL [Desyrel] 150 mg PO BEDTIME 11/10/17 Aspirin [Aspirin Low Strength] 81 mg PO DAILY 04/03/18 Insulin Aspart [Novolog Flexpen] 10 unit SC QID 04/03/18 DiphenhydrAMINE HCL [Benadryl] 50 mg PO BEDTIME 05/28/18 HYDROcodone 10MG/APAP 325MG [[place] 10/325] 1 tab PO BEDTIME 05/28/18 Review of Systems - Review of Systems Constitutional: States: no symptoms reported EENTM: States: no symptoms reported Respiratory: States: no symptoms reported Cardiology: States: no symptoms reported Gastrointestinal/Abdominal: States: no symptoms reported Genitourinary: States: no symptoms reported Musculoskeletal: States: no symptoms reported Skin: States: see HPI Neurological: States: no symptoms reported Endocrine: States: no symptoms reported All other Systems: No Change from Baseline Past Medical History (General) - Patient Medical History Hx Seizures: No Hx Stroke: No Hx Dementia: No Hx Asthma: No Hx of COPD: Yes Hx Cardiac Disorders: Yes - Dyslipidemia; [place] x 2; stent placement Hx Congestive Heart Failure: No Hx Pacemaker: No Hx Hypertension: Yes Hx Thyroid Disease: No Hx Diabetes: Yes Hx Gastroesophageal Reflux: No Hx Renal Disease: No Hx Cancer: No Hx of HIV: No Hx Hepatitis C: No Hx MRSA: No Surgical History: cholecystectomy, other - Vaccination History Hx Tetanus, Diphtheria Vaccination: No Hx Influenza Vaccination: No Hx Pneumococcal Vaccination: No - Social History Hx Tobacco Use: Yes Hx Chewing Tobacco Use: No Hx Alcohol Use: No Hx Substance Use: No Hx Substance Use Treatment: No Hx Depression: No Hx Physical Abuse: No Hx Emotional Abuse: No Hx Suspected Abuse: No Family Medical History - Family History Father Family History: Unknown Living Status: Hx Family Asthma: No Hx Family Congestive Heart Failure: Yes Hx Family Hypertension: Yes Hx Family Stroke: No Hx Cardiac Disease: Yes Hx Family Diabetes: Yes Hx Family Cancer: Yes - prostate cancer Hx Family;Other: Parkinson's Mother Family History: No Known Physical Exam - Physical Exam General Appearance: Alert, Comfortable, No apparent distress Eye Exam: bilateral normal Ears, Nose, Throat: hearing grossly normal, normal pharynx Neck: non-tender, supple Respiratory: no respiratory distress, no accessory muscle use Cardiovascular/Chest: normal peripheral pulses, no edema, other - regular rate Gastrointestinal/Abdominal: non tender - morbidly obese, soft Rectal Exam: other - the patient has a 2 mm laceration to a hemorrhoid that extends up to about an inch to the external side of the rectum. It is still bleeding minimally. No other evidence of bleeding. 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 Risk and benefits of intervention are explained and the patient agrees to proceed. The hemorrhoid is cleaned with alcohol and lidocaine with epinephrine was injected 1-1/2 cc. A [id number] suture of 4-0 Ethilon was placed surrounding the 2 mm laceration. Good hemostasis was obtained. He needs to clean the area gently with soap and water 2-3 times a day. He needs to avoid wiping with any significant pressure over it. If he does, he may pull the stitch and cause additional bleeding. MiraLAX once daily for the next couple of weeks is recommended for constipation prevention. Suture needs to come out in 7-10 days. Attention was then turned to the plantar wart on right foot. A 15 blade scalpel was used to pare down the plantar wart. He may yet benefit from cryotherapy to the area with his primary care doctor. No obvious ulcer formation at this time. He is a diabetic. The patient did receive 1 prophylactic dose of an antibiotic here for above procedures though there was no obvious significant break in the skin on the foot intervention. Keep routine follow-up with primary care doctor. ER warnings were given. jean [email or web address] [id number] Departure - Departure Clinical Impression: Plantar wart of right foot, Bleeding external hemorrhoids Disposition: Discharge to Home or Self Care Condition: Fair Departure Forms: ED Discharge - Pt. Copy, Patient Portal Self Enrollment Instructions: Hemorrhoids (DC), Plantar Warts (DC) Diet: diabetic diet Activity: increase activity as tolerated Referrals: Nakul Torres MD [Primary Care Provider] - 1-2 Weeks Home Medications: Ambulatory Orders Atorvastatin Calcium [Lipitor] 20 mg PO DAILY 11/10/17 Citalopram Hydrobromide [Citalopram] 20 mg PO DAILY 11/10/17 Clopidogrel Bisulfate [Plavix] 75 mg PO DAILY 11/10/17 Dulaglutide [Trulicity] 0.75 unit SC WKLY 11/10/17 Glipizide [Glipizide ER] 10 mg PO BID 11/10/17 Hydroxyzine Pamoate 25 mg PO TID 11/10/17 Insulin Degludec [Tresiba Flextouch] 70 unit SC DAILY 11/10/17 Propranolol HCl [Propranolol Hydrochloride] 10 mg PO TID 11/10/17 Sertraline HCl 100 mg PO DAILY 11/10/17 traZODone HCL [Desyrel] 150 mg PO BEDTIME 11/10/17 Aspirin [Aspirin Low Strength] 81 mg PO DAILY 04/03/18 Insulin Aspart [Novolog Flexpen] 10 unit SC QID 04/03/18 DiphenhydrAMINE HCL [Benadryl] 50 mg PO BEDTIME 05/28/18 HYDROcodone 10MG/APAP 325MG [[place] 10/325] 1 tab PO BEDTIME 05/28/18 Additional Instructions: the patient is a 53-year-old male presenting to the emergency room secondary to a bleeding external hemorrhoid on the left and a plantar wart with significant surrounding callus on the right foot. Risk and benefits of intervention are explained and the patient agrees to proceed. The hemorrhoid is cleaned with alcohol and lidocaine with epinephrine was injected 1-1/2 cc. A [id number] suture of 4-0 Ethilon was placed surrounding the 2 mm laceration. Good hemostasis was obtained. He needs to clean the area gently with soap and water 2-3 times a day. He needs to avoid wiping with any significant pressure over it. If he does, he may pull the stitch and cause additional bleeding. MiraLAX once daily for the next couple of weeks is recommended for constipation prevention. Suture needs to come out in 7-10 days. Attention was then turned to the plantar wart on right foot. A 15 blade scalpel was used to pare down the plantar wart. He may yet benefit from cryotherapy to the area with his primary care doctor. No obvious ulcer formation at this time. He is a diabetic. The patient did receive 1 prophylactic dose of an antibiotic here for above procedures though there was no obvious significant break in the skin on the foot intervention. Keep routine follow-up with primary care doctor. ER warnings were given.
[2018-11-23] MEDS ORDERED: CIPROFLOXACIN 500 MG TAB PO ONE (06:57)
[2018-11-23 07:12] VITALS: BP 109/80; TEMP 97.8
== END 2018-11-23 07:10 | disposition home or self-care (01) ==
LOC: ER 06:04
DX: K64.4 Residual hemorrhoidal skin tags (principal); B07.0 Plantar wart; E78.5 Hyperlipidemia, unspecified; I25.2 Old myocardial infarction; I10 Essential (primary) hypertension; E11.9 Type 2 diabetes mellitus without complications; J44.9 Chronic obstructive pulmonary disease, unspecified; E66.01 Morbid (severe) obesity due to excess calories; Z95.5 Presence of coronary angioplasty implant and graft; Z87.891 Personal history of nicotine dependence; Z79.4 Long term (current) use of insulin; Z79.899 Other long term (current) drug therapy; Z79.82 Long term (current) use of aspirin; Z79.02 Long term (current) use of antithrombotics/antiplatelets; Z88.2 Allergy status to sulfonamides; Z88.5 Allergy status to narcotic agent; Z88.0 Allergy status to penicillin; Z68.41 Body mass index [BMI] 40.0-44.9, adult

== ENCOUNTER 2019-07-05 | Emergency (ER) | payer MEDICARE, MEDICAID ==
--- NOTE | 2019-07-05 19:54 | ED.PDOC ---
History of Present Illness - General Chief Complaint: ENT Problem Stated Complaint: my ear is full of wax Time Seen by Provider: 07/05/19 19:52 Source: patient Exam Limitations: no limitations - History of Present Illness Initial Comments: The patient is a 53-year-old male presented emergency room secondary to left ear cerumen impaction. It is bothering him significantly. He has had this problem before. Timing/Duration: 1 week Severity: moderate Improving Factors: nothing Worsening Factors: nothing Associated Symptoms: denies symptoms Allergies/Adverse Reactions: Allergies Sulfamethoxazole w/Trimethoprim [From Bactrim] Allergy (Verified 11/23/18 06:45) Tramadol Allergy (Verified 11/23/18 06:45) Penicillin G Adverse Reaction (Verified 11/23/18 06:45) Sulfa Antibiotics Adverse Reaction (Verified 11/23/18 06:45) Home Medications: Ambulatory Orders Atorvastatin Calcium [Lipitor] 20 mg PO DAILY 11/10/17 Citalopram Hydrobromide [Citalopram] 20 mg PO DAILY 11/10/17 Clopidogrel Bisulfate [Plavix] 75 mg PO DAILY 11/10/17 Dulaglutide [Trulicity] 0.75 unit SC WKLY 11/10/17 Glipizide [Glipizide ER] 10 mg PO BID 11/10/17 Hydroxyzine Pamoate 25 mg PO TID 11/10/17 Insulin Degludec [Tresiba Flextouch] 70 unit SC DAILY 11/10/17 Propranolol HCl [Propranolol Hydrochloride] 10 mg PO TID 11/10/17 Sertraline HCl [Sertraline Hydrochloride] 100 mg PO DAILY 11/10/17 traZODone HCL [Desyrel] 150 mg PO BEDTIME 11/10/17 Aspirin [Aspirin Low Strength] 81 mg PO DAILY 04/03/18 Insulin Aspart [Novolog Flexpen] 10 unit SC QID 04/03/18 DiphenhydrAMINE HCL [Benadryl] 50 mg PO BEDTIME 05/28/18 HYDROcodone 10MG/APAP 325MG [[place] 10/325] 1 tab PO BEDTIME 05/28/18 Review of Systems - Review of Systems Constitutional: States: no symptoms reported EENTM: States: see HPI Respiratory: States: no symptoms reported Cardiology: States: no symptoms reported Gastrointestinal/Abdominal: States: no symptoms reported Genitourinary: States: no symptoms reported Musculoskeletal: States: no symptoms reported Skin: States: no symptoms reported Neurological: States: no symptoms reported Endocrine: States: no symptoms reported All other Systems: No Change from Baseline Past Medical History (General) - Patient Medical History Hx Seizures: No Hx Stroke: No Hx Dementia: No Hx Asthma: No Hx of COPD: Yes Hx Cardiac Disorders: Yes - Dyslipidemia; [place] x 2; stent placement Hx Congestive Heart Failure: No Hx Pacemaker: No Hx Hypertension: Yes Hx Thyroid Disease: No Hx Diabetes: Yes Hx Gastroesophageal Reflux: No Hx Renal Disease: No Hx Cancer: No Hx of HIV: No Hx Hepatitis C: No Hx MRSA: No - Vaccination History Hx Tetanus, Diphtheria Vaccination: No Hx Influenza Vaccination: No Hx Pneumococcal Vaccination: No - Social History Hx Tobacco Use: Yes Hx Chewing Tobacco Use: No Hx Alcohol Use: No Hx Substance Use: No - hx of substance abuse Hx Substance Use Treatment: No Hx Depression: No Hx Physical Abuse: No Hx Emotional Abuse: No Hx Suspected Abuse: No Family Medical History - Family History Father Family History: Unknown Living Status: Hx Family Asthma: No Hx Family Congestive Heart Failure: Yes Hx Family Hypertension: Yes Hx Family Stroke: No Hx Cardiac Disease: Yes Hx Family Diabetes: Yes Hx Family Cancer: Yes - prostate cancer Hx Family;Other: Parkinson's Mother Family History: No Known Physical Exam - Physical Exam General Appearance: Alert, Comfortable, No apparent distress Eye Exam: bilateral normal Ears, Nose, Throat: other - Left ear cerumen impaction Neck: full range of motion, supple Respiratory: no respiratory distress, no accessory muscle use Cardiovascular/Chest: normal peripheral pulses, no edema Peripheral Pulses: radial,right: 2+, radial,left: 2+ Gastrointestinal/Abdominal: non tender, soft Rectal Exam: deferred Extremity: no pedal edema, normal capillary refill 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 The left ear canal was disimpacted. He is to use hydrogen peroxide for 5 minutes each night for the next week before he gets in the shower in order to help remove any residual wax. ER warnings are given. jean [email or web address] [id number] Departure - Departure Clinical Impression: Impacted cerumen of left ear Disposition: Discharge to Home or Self Care Condition: Fair Departure Forms: ED Discharge - Pt. Copy, Patient Portal Self Enrollment Instructions: Ear Wax Impaction (DC) Diet: diabetic diet Activity: increase activity as tolerated Referrals: Nakul Torres MD [Primary Care Provider] - 1-2 Weeks Home Medications: Ambulatory Orders Atorvastatin Calcium [Lipitor] 20 mg PO DAILY 11/10/17 Citalopram Hydrobromide [Citalopram] 20 mg PO DAILY 11/10/17 Clopidogrel Bisulfate [Plavix] 75 mg PO DAILY 11/10/17 Dulaglutide [Trulicity] 0.75 unit SC WKLY 11/10/17 Glipizide [Glipizide ER] 10 mg PO BID 11/10/17 Hydroxyzine Pamoate 25 mg PO TID 11/10/17 Insulin Degludec [Tresiba Flextouch] 70 unit SC DAILY 11/10/17 Propranolol HCl [Propranolol Hydrochloride] 10 mg PO TID 11/10/17 Sertraline HCl [Sertraline Hydrochloride] 100 mg PO DAILY 11/10/17 traZODone HCL [Desyrel] 150 mg PO BEDTIME 11/10/17 Aspirin [Aspirin Low Strength] 81 mg PO DAILY 04/03/18 Insulin Aspart [Novolog Flexpen] 10 unit SC QID 04/03/18 DiphenhydrAMINE HCL [Benadryl] 50 mg PO BEDTIME 05/28/18 HYDROcodone 10MG/APAP 325MG [[place] 10/325] 1 tab PO BEDTIME 05/28/18 Additional Instructions: The patient is a 53-year-old male presented to emergency room secondary to left ear cerumen impaction. The left ear canal was disimpacted. He is to use hydrogen peroxide for 5 minutes each night for the next week before he gets in the shower in order to help remove any residual wax. ER warnings are given.
== END 2019-07-05 20:00 | disposition home or self-care (01) ==

== ENCOUNTER 2019-08-11 20:12 | Emergency (ER) | payer MEDICARE, MEDICAID ==
[2019-08-11] MEDS ORDERED: MORPHINE SULFATE INJ 10 MG/ML VIAL IV ONE (20:23)
--- NOTE | 2019-08-11 21:12 | RAD ---
EXAM DESCRIPTION: Chest,1 View CLINICAL HISTORY: 53 years Male chest pain, sob COMPARISON: 05/28/2018 FINDINGS: The cardiomediastinal silhouette appears unremarkable. No consolidating infiltrates or pleural effusions. No pneumothorax. IMPRESSION: No acute abnormality is identified. Electronically signed by: Pina Mcdaniel MD 08/11/2019 9:10 PM CDT
[2019-08-11] MEDS ORDERED: diazePAM 2 MG TAB PO ONE (21:13)
[2019-08-11] MEDS ORDERED: KETOROLAC TROMETHAMINE INJ 30 MG/ML VIAL IV ONE (21:13)
[2019-08-11] MEDS ORDERED: ASPIRIN TABLET 325 MG TAB PO ONE (21:13)
[2019-08-11] MEDS ORDERED: NITROGLYCERIN 0.4 MG 25 EA TAB SL ONE (22:06)
[2019-08-11] MEDS ORDERED: IPRATROPIUM/ALBUTEROL 3 ML VIAL NEB ONE (22:08)
[2019-08-11] MEDS ORDERED: NITROGLYCERIN 2% 1 GM UD TOP ONE (22:22)
[2019-08-11] MEDS ORDERED: ENOXAPARIN SODIUM 100 MG/ML SYG SUBCU ONE (22:28)
[2019-08-11] MEDS ORDERED: ENOXAPARIN SODIUM 30 MG/0.3 ML SYG SUBCU ONE (22:28)
[2019-08-11] MEDS ORDERED: CLOPIDOGREL 75 MG TAB PO ONE (22:45)
--- NOTE | 2019-08-11 22:48 | ED.PDOC ---
History of Present Illness - General Chief Complaint: Chest Pain/FL Stated Complaint: chest pain Time Seen by Provider: 08/11/19 20:16 Source: patient Exam Limitations: no limitations - History of Present Illness Initial Comments: The patient is a 53-year-old male presented emergency room secondary to sudden onset chest pain that started about an hour prior to arrival. Pain is both somewhat sharp and dull. It is made a little bit worse with movement but not much worse. He does have a feeling of significant shortness of breath with it. Pain is somewhat associated with diaphoresis. No vomiting but he did have a little bit of nausea with it. No syncope. The patient had finished supper once it started. The patient had a stent placed about a year and a half ago and had not had chest pain since. He did take his nitroglycerin at home with little effect. He does not have a history of chronic angina. No recent trauma. No history of gout. No history of pericarditis. The patient does have a history of insulin-dependent diabetes, hypertension, COPD, morbid obesity, hypercholesterolemia and the 2 stent placements as above. the patient sees dr hernández. He does have some pain to palpation at the left parasternal border but it does not significantly reproduce the pain that brought him here. Morphine helped somewhat with the pain however nitroglycerin helped more. Timing/Duration: 1 hour Severity: severe Improving Factors: medication Worsening Factors: movement Associated Symptoms: chest pain, shortness of breath Allergies/Adverse Reactions: Allergies Sulfamethoxazole w/Trimethoprim [From Bactrim] Allergy (Verified 11/23/18 06:45) Tramadol Allergy (Verified 11/23/18 06:45) Penicillin G Adverse Reaction (Verified 11/23/18 06:45) Sulfa Antibiotics Adverse Reaction (Verified 11/23/18 06:45) Home Medications: Ambulatory Orders Atorvastatin Calcium [Lipitor] 20 mg PO DAILY 11/10/17 Citalopram Hydrobromide [Citalopram] 20 mg PO DAILY 11/10/17 Clopidogrel Bisulfate [Plavix] 75 mg PO DAILY 11/10/17 Dulaglutide [Trulicity] 0.75 unit SC WKLY 11/10/17 Glipizide [Glipizide ER] 10 mg PO BID 11/10/17 Hydroxyzine Pamoate 25 mg PO TID 11/10/17 Insulin Degludec [Tresiba Flextouch] 70 unit SC DAILY 11/10/17 Propranolol HCl [Propranolol Hydrochloride] 10 mg PO TID 11/10/17 Sertraline HCl [Sertraline Hydrochloride] 100 mg PO DAILY 11/10/17 traZODone HCL [Desyrel] 150 mg PO BEDTIME 11/10/17 Aspirin [Aspirin Low Strength] 81 mg PO DAILY 04/03/18 Insulin Aspart [Novolog Flexpen] 10 unit SC QID 04/03/18 DiphenhydrAMINE HCL [Benadryl] 50 mg PO BEDTIME 05/28/18 HYDROcodone 10MG/APAP 325MG [[place] 10/325] 1 tab PO BEDTIME 05/28/18 Review of Systems - Review of Systems Constitutional: States: no symptoms reported EENTM: States: no symptoms reported Respiratory: States: short of breath Cardiology: States: chest pain Gastrointestinal/Abdominal: States: no symptoms reported Genitourinary: States: no symptoms reported Musculoskeletal: States: no symptoms reported Skin: States: no symptoms reported Neurological: States: no symptoms reported Endocrine: States: no symptoms reported All other Systems: No Change from Baseline Past Medical History (General) - Patient Medical History Hx Seizures: No Hx Stroke: No Hx Dementia: No Hx Asthma: No Hx of COPD: Yes Hx Cardiac Disorders: Yes - Dyslipidemia; [place] x 2; stent placement Hx Congestive Heart Failure: Yes Hx Pacemaker: No Hx Hypertension: Yes Hx Thyroid Disease: No Hx Diabetes: Yes Hx Gastroesophageal Reflux: No Hx Renal Disease: No Hx Cancer: No Hx of HIV: No Hx Hepatitis C: No Hx MRSA: No Surgical History: other - Vaccination History Hx Tetanus, Diphtheria Vaccination: No Hx Influenza Vaccination: No Hx Pneumococcal Vaccination: Yes Immunizations Up to Date: No - Social History Hx Tobacco Use: Yes Hx Chewing Tobacco Use: No Hx Alcohol Use: No Hx Substance Use: No - hx of substance abuse Hx Substance Use Treatment: No Hx Depression: Yes Feels Threatened In Home Enviroment: No Feels Threatened In a Relationship: No Hx Physical Abuse: No Hx Emotional Abuse: No Hx Suspected Abuse: No - Activities of Daily Living Hospice Agency (if applicable):: None - Female History Patient is a Female of Child Bearing Age (10 -59 yrs old): No Family Medical History - Family History Father Family History: Unknown Living Status: Hx Family Asthma: No Hx Family Congestive Heart Failure: Yes Hx Family Hypertension: Yes Hx Family Stroke: No Hx Cardiac Disease: Yes Hx Family Diabetes: Yes Hx Family Cancer: Yes - prostate cancer Hx Family;Other: Parkinson's Mother Family History: No Known Physical Exam - Physical Exam General Appearance: Alert, Anxious, Obvious distress Eye Exam: bilateral normal Ears, Nose, Throat: hearing grossly normal, normal pharynx Neck: full range of motion, supple Respiratory: lungs clear, other - The patient does have some tachypnea and does appear short of breath. Air movement is good and I hear no obvious wheezing however. Cardiovascular/Chest: normal peripheral pulses, regular rate, rhythm, no edema Peripheral Pulses: radial,right: 2+, radial,left: 2+ Gastrointestinal/Abdominal: non tender - Obese, soft Rectal Exam: deferred Back Exam: no CVA tenderness, no vertebral tenderness Extremity: normal range of motion, non-tender, normal inspection, no pedal edema, normal capillary refill Neurologic: chief knowledge officer II-XII nml as tested, alert, oriented x 3, other - Very anxious Skin Exam: normal color Comments: Vital Signs - 24 hr 08/11/19 20:15 Temperature 98.3 F Pulse Rate 92 H Pulse Rate [ 96 H monitor] Respiratory 26 H Rate Blood Pressure 137/96 [Left Arm] O2 Sat by Pulse 99 Oximetry Progress - Progress Progress: 08/11/19 22:53 The patient is a 53-year-old male presenting secondary toAbrupt onset chest pain fairly severe in nature. Given the patient's history and presentation this is felt to be most consistent with unstable angina. Most pain relief was given by the nitroglycerin. Initial heart enzymes are negative and EKGs are reassuring. The patient was given Lovenox, aspirin, blow-by oxygen and nitroglycerin along with a dose of morphine. The patient is being transferred to the referral center where he has had his previous stent placed. He will of course need repeat enzymes and cardiology evaluation. The patient does have an elevated ESR. I have no previous ones to compare to. Clinically and on the EKG there is little to indicate pericarditis specifically however it is still in the differential. Transferring for specialty care. jean jacobs [phone] - Results/Orders Results/Orders: Chest x-ray shows no obvious acute pathology. Initial and repeat EKG shows normal sinus rhythm around 90 bpm. Normal axis. Normal R wave progression. Normal QT interval. No ST segment or T wave changes indicative of acute ischemia. Laboratory Results - last 24 hr 08/11/19 08/11/19 08/11/19 20:27 20:27 20:27 WBC 13.1 H RBC 4.97 Hgb 13.6 L Hct 41.2 L MCV 83.0 MCH 27.4 MCHC 33.0 RDW 15.2 H Plt Count 320 MPV 7.8 Absolute Neuts (auto) 8.90 H Absolute Lymphs (auto) 3.10 Absolute Monos (auto) 0.70 Absolute Eos (auto) 0.10 Absolute Basos (auto) 0.10 Neutrophils % 68.3 Lymphocytes % 24.0 Monocytes % 5.6 Eosinophils % 1.0 Basophils % 1.1 ESR PT 9.3 INR < 1.00 PTT (SP) 26.2 D-Dimer, Quantitative 253 Sodium 137 Potassium 4.0 Chloride 99 L Carbon Dioxide 30 Anion Gap 12.0 BUN 10 Creatinine 0.88 BUN/Creatinine Ratio 11.4 Random Glucose 117 H Serum Osmolality 273.9 L Uric Acid Calcium 8.7 Magnesium 2.4 Total Bilirubin 0.3 AST 25 ALT 31 Alkaline Phosphatase 159 H Creatine Kinase 81 CK-MB (CK-2) 1.1 CK-MB (CK-2) % Not Reportable Troponin I 0.02 B-Natriuretic Peptide 20.2 Serum Total Protein 7.5 Albumin 3.6 Globulin 3.9 H Albumin/Globulin Ratio 0.9 L 08/11/19 08/11/19 20:27 20:27 WBC RBC Hgb Hct MCV MCH MCHC RDW Plt Count MPV Absolute Neuts (auto) Absolute Lymphs (auto) Absolute Monos (auto) Absolute Eos (auto) Absolute Basos (auto) Neutrophils % Lymphocytes % Monocytes % Eosinophils % Basophils % ESR 45 H PT INR PTT (SP) D-Dimer, Quantitative Sodium Potassium Chloride Carbon Dioxide Anion Gap BUN Creatinine BUN/Creatinine Ratio Random Glucose Serum Osmolality Uric Acid 5.2 Calcium Magnesium Total Bilirubin AST ALT Alkaline Phosphatase Creatine Kinase CK-MB (CK-2) CK-MB (CK-2) % Troponin I B-Natriuretic Peptide Serum Total Protein Albumin Globulin Albumin/Globulin Ratio Departure - Departure Clinical Impression: Unstable angina Disposition: Transfer to Hospital Condition: Serious Departure Forms: ED Discharge - Pt. Copy, Patient Portal Self Enrollment Referrals: Nakul Torres MD [Primary Care Provider] - 1-2 Weeks Home Medications: Ambulatory Orders Atorvastatin Calcium [Lipitor] 20 mg PO DAILY 11/10/17 Citalopram Hydrobromide [Citalopram] 20 mg PO DAILY 11/10/17 Clopidogrel Bisulfate [Plavix] 75 mg PO DAILY 11/10/17 Dulaglutide [Trulicity] 0.75 unit SC WKLY 11/10/17 Glipizide [Glipizide ER] 10 mg PO BID 11/10/17 Hydroxyzine Pamoate 25 mg PO TID 11/10/17 Insulin Degludec [Tresiba Flextouch] 70 unit SC DAILY 11/10/17 Propranolol HCl [Propranolol Hydrochloride] 10 mg PO TID 11/10/17 Sertraline HCl [Sertraline Hydrochloride] 100 mg PO DAILY 11/10/17 traZODone HCL [Desyrel] 150 mg PO BEDTIME 11/10/17 Aspirin [Aspirin Low Strength] 81 mg PO DAILY 04/03/18 Insulin Aspart [Novolog Flexpen] 10 unit SC QID 04/03/18 DiphenhydrAMINE HCL [Benadryl] 50 mg PO BEDTIME 05/28/18 HYDROcodone 10MG/APAP 325MG [[place] 10/325] 1 tab PO BEDTIME 05/28/18 Transfer to Outside Facility - Transfer Information Decision to Transfer Date: 08/11/19 Decision to Transfer Time: 22:56 Reason for Transfer: required specialist not available Accepting Provider:: dr sheikh Accepting Facility: [facility]
[2019-08-11 23:19] VITALS: O2SAT 94
[2019-08-11 23:59] VITALS: BP 109/75; TEMP 98.2
== END 2019-08-11 23:40 | disposition short-term general hospital (02) ==
LOC: ER 20:12
DX: I20.0 Unstable angina (principal); E11.9 Type 2 diabetes mellitus without complications; I10 Essential (primary) hypertension; I25.2 Old myocardial infarction; J44.9 Chronic obstructive pulmonary disease, unspecified; Z95.5 Presence of coronary angioplasty implant and graft; Z79.4 Long term (current) use of insulin; Z79.02 Long term (current) use of antithrombotics/antiplatelets; Z79.82 Long term (current) use of aspirin; F17.200 Nicotine dependence, unspecified, uncomplicated
CPT/HCPCS: 71045; 80053; 82550; 82553; 83735; 83880; 84484; 84550; 85025; 85379; 85610; 85651; 85730; 93005; J1650; J1885; J2270; J7620

== ENCOUNTER → 2019-12-12 | Outpatient (CLI) | payer MEDICARE, MEDICAID ==
--- NOTE | 2019-12-13 10:51 | MRI ---
Study: MRI of the Left Knee. Indication: TEAR Technique: Multiplanar, multi sequence MRI of the left knee was obtained without intravenous contrast. Comparison: None. Findings: Partial visualization of susceptibility artifact at the distal femoral diaphysis on the physical education professor imaging. Surgical construct suspected but difficult to confirm given the field of view. Scattered degenerative signal changes medial meniscus and lateral meniscus without tear defect. Areas of grade 2 and 3 chondrosis of the medial knee compartment with grade 2 changes lateral compartment. Low-grade tendinosis quadriceps tendon insertion and patellar tendon origin. Patella normally located. TT-TG distance measures 9 mm. No high-grade chondral defect patellofemoral compartment. Tiny effusion. No acute fracture. Tiny Nelson's cyst. Impression: Degenerative signal changes medial meniscus and lateral meniscus without tear. Grade 2-3 chondrosis medial knee compartment with grade 2 changes lateral compartment. Tendinosis patellar tendon origin without tear. Electronically signed by: Vadim Whiteside MD 12/13/2019 10:50 AM CDT
== END ==
LOC: MRI 13:00
PROVIDERS: ATTEND Family Medicine
DX: M23.362 Other meniscus derangements, other lateral meniscus, left knee (principal); M23.332 Other meniscus derangements, other medial meniscus, left knee; M94.262 Chondromalacia, left knee; M76.52 Patellar tendinitis, left knee

== ENCOUNTER 2019-12-21 05:16 | Day surgery (SDC) | payer MEDICARE, MEDICAID ==
[2019-12-21] MEDS ORDERED: LIDOCAINE 1% 10 ML VIAL INJ ONE (05:17)
[2019-12-21] MEDS ORDERED: PROPOFOL 200 MG/20 ML VIAL IV ONE (05:17)
[2019-12-21] MEDS ORDERED: LACTATED RINGERS 1,000 ML ONE ×2 (06:42→14:08)
[2019-12-21] MEDS ORDERED: LACTATED RINGERS 1,000 ML IVS ONE (12:10)
[2019-12-21 15:43] VITALS: BP 140/96; TEMP 97.2; O2SAT 95
--- NOTE | 2019-12-22 09:08 | OP ---
PREOPERATIVE DIAGNOSIS: 1. Screening colonoscopy. POSTOPERATIVE DIAGNOSIS: 1. Colon polyp. PROCEDURE: Colonoscopy, single polyp excision at the proximal transverse colon. SURGEON: Nakul Rose MD ANESTHESIA: General. FINDINGS: As described. INDICATION: This is a gentleman who had a previous scope planned, he said about 3 years ago. He had a poor prep and had not followed up until now. His prep seemed to go well. He said he saw some blood in his stool during the prep. PROCEDURE: He was brought to the suite in the lateral position. General anesthesia was induced. Digital rectal exam was normal. The endoscope was inserted, initially it appeared to be potentially a poor prep with a lot of stool along the wall. We inserted the scope, ultimately getting to the cecum. There was some vegetable material but it did not hamper our examination and after significant irrigation and suction, the prep was adequate. Upon withdrawal, the mucosal surfaces appeared normal with one polyp seen. It was only about 2 mm in the proximal transverse colon. The remainder of exam was normal with no obvious polyps. Again, we did have to irrigate and aspirate quite a bit but I think overall it was good exam, he had a single polyp. He tolerated the procedure. He was taken to Recovery. We will see him in followup for biopsy results. . #[id number] cc: Nakul Torres MD [facility]
== END 2019-12-21 15:39 | disposition home or self-care (01) ==
LOC: AMB 05:16
PROVIDERS: ATTEND Surgery
DX: K62.5 Hemorrhage of anus and rectum (principal); D12.3 Benign neoplasm of transverse colon; J44.9 Chronic obstructive pulmonary disease, unspecified; E11.9 Type 2 diabetes mellitus without complications; I10 Essential (primary) hypertension; F32.9 Major depressive disorder, single episode, unspecified; I25.2 Old myocardial infarction; E78.00 Pure hypercholesterolemia, unspecified; E66.9 Obesity, unspecified; F17.210 Nicotine dependence, cigarettes, uncomplicated; Z87.820 Personal history of traumatic brain injury; Z68.38 Body mass index [BMI] 38.0-38.9, adult; Z88.1 Allergy status to other antibiotic agents; Z88.0 Allergy status to penicillin; Z88.2 Allergy status to sulfonamides; Z88.5 Allergy status to narcotic agent; Z95.5 Presence of coronary angioplasty implant and graft; Z79.51 Long term (current) use of inhaled steroids; Z79.4 Long term (current) use of insulin; Z79.82 Long term (current) use of aspirin; Z79.899 Other long term (current) drug therapy
CPT/HCPCS: 00811; 36416; 45380; 82948; 88305; J3490; J7120

== ENCOUNTER → 2019-12-24 | Outpatient (CLI) | payer MEDICARE, MEDICAID | LOC: GMAJ 17:06 | PROVIDERS: ATTEND Family Medicine | DX: Z12.5 Encounter for screening for malignant neoplasm of prostate (principal); E78.2 Mixed hyperlipidemia; I10 Essential (primary) hypertension; E11.9 Type 2 diabetes mellitus without complications ==

== ENCOUNTER 2020-02-01 10:19 | Emergency (ER) | payer MEDICARE, MEDICAID | END 2020-02-01 11:15 | disposition left against medical advice (07) | LOC: ER 10:19 | DX: R21 Rash and other nonspecific skin eruption (principal); Z53.29 Procedure and treatment not carried out because of patient's decision for other reasons ==

== ENCOUNTER 2020-02-03 02:07 | Emergency (ER) | payer MEDICARE, MEDICAID ==
[2020-02-03] MEDS ORDERED: KETOROLAC TROMETHAMINE INJ 30 MG/ML VIAL IM ONE (02:44)
[2020-02-03 02:45] VITALS: TEMP 98.3; O2SAT 95
--- NOTE | 2020-02-03 03:04 | ED.PDOC ---
History of Present Illness - General Chief Complaint: Back Pain or Injury Stated Complaint: RIGHT SIDE PAIN LOW BACK Time Seen by Provider: 02/03/20 02:33 Source: patient, RN notes reviewed, Vital Signs reviewed Exam Limitations: no limitations - History of Present Illness Initial Comments: Patient is a 54-year-old white male who presents with complaints of right low back pain. This is been ongoing for a few days. He has a history of intermittent low back pain. Patient unsure how he hurt it. Pain is worse when he bends over or twists. Nothing seems to help the pain. It is sharp and stabbing in nature. It radiates laterally and into the buttock. Timing/Duration: constant, getting worse, other - 3 to 4 days. Severity: moderate Improving Factors: nothing Worsening Factors: movement Associated Symptoms: denies symptoms Allergies/Adverse Reactions: Allergies Sulfamethoxazole w/Trimethoprim [From Bactrim] Allergy (Verified 11/23/18 06:45) Tramadol Allergy (Verified 11/23/18 06:45) Penicillin G Adverse Reaction (Verified 11/23/18 06:45) Sulfa Antibiotics Adverse Reaction (Verified 11/23/18 06:45) Home Medications: Ambulatory Orders Atorvastatin Calcium [Lipitor] 20 mg PO BEDTIME 11/10/17 Citalopram Hydrobromide [Citalopram] 20 mg PO DAILY 11/10/17 Clopidogrel Bisulfate [Plavix] 75 mg PO DAILY 11/10/17 Hydroxyzine Pamoate 25 mg PO BID 11/10/17 Insulin Degludec [Tresiba Flextouch] 70 unit SC BID 11/10/17 Propranolol HCl [Propranolol Hydrochloride] 10 mg PO TID 11/10/17 traZODone HCL [Desyrel] 200 mg PO BEDTIME 11/10/17 Aspirin [Aspirin Low Strength] 81 mg PO DAILY 04/03/18 Furosemide 40 mg PO DAILY 12/19/19 Insulin Lispro [Humalog] 12 units SC AC 12/19/19 Nitroglycerin 0.4 mg Tab [Nitrostat] 1 ea SL Q5MIN PRN 12/19/19 Potassium Chloride [Potassium Chloride ER] 10 meq PO DAILY 12/19/19 Acetaminophen W/ Codeine [Tylenol W/ CODEINE #3] 1 tablet PO Q6H #12 ea 02/03/20 Cyclobenzaprine HCl [Flexeril] 10 mg PO TID #15 tab 02/03/20 Dulaglutide [Trulicity] 1.5 mg SC WKLY 02/03/20 Sertraline HCl [Zoloft] 100 mg PO DAILY 02/03/20 hydrOXYzine HCl [Atarax] 50 mg PO BEDTIME 02/03/20 Review of Systems - Review of Systems Constitutional: States: no symptoms reported, see HPI. Denies: chills, fever, malaise, weakness EENTM: States: no symptoms reported. Denies: eye pain, blurred vision, double vision Respiratory: Denies: no symptoms reported, cough, short of breath Cardiology: States: no symptoms reported. Denies: chest pain, palpitations, syncope Gastrointestinal/Abdominal: States: no symptoms reported. Denies: abdominal pain, diarrhea, nausea, vomiting Genitourinary: States: no symptoms reported. Denies: dysuria, frequency Musculoskeletal: States: see HPI, back pain. Denies: joint pain, neck pain Skin: States: rash - Around his face where his mass correlates. Neurological: States: no symptoms reported. Denies: numbness, paresthesia, tingling, tremors, weakness Endocrine: States: no symptoms reported. Denies: increased hunger, increased thirst, increased urine Hematologic/Lymphatic: States: no symptoms reported. Denies: blood clots, easy bleeding All other Systems: No Change from Baseline Past Medical History (General) - Patient Medical History Hx Seizures: No Hx Stroke: No Hx Dementia: No Hx Asthma: No Hx of COPD: Yes Hx Cardiac Disorders: Yes - [place] X 2 Hx Congestive Heart Failure: Yes Hx Pacemaker: No Hx Hypertension: Yes Hx Thyroid Disease: No Hx Diabetes: Yes - POST OP 77 Hx Gastroesophageal Reflux: No Hx Renal Disease: No Hx Cancer: No Hx of HIV: No Hx Hepatitis C: No Hx MRSA: No Surgical History: other - Vaccination History Hx Tetanus, Diphtheria Vaccination: Yes Hx Influenza Vaccination: No Hx Pneumococcal Vaccination: No Immunizations Up to Date: No - Social History Hx Tobacco Use: Yes Years Tobacco Use: 30 Cigarettes Packs Per Day: 1 Hx Chewing Tobacco Use: No Hx Alcohol Use: No Hx Substance Use: No Hx Substance Use Treatment: No Hx Depression: No Feels Threatened In Home Enviroment: No Feels Threatened In a Relationship: No Hx Physical Abuse: No Hx Emotional Abuse: No Hx Suspected Abuse: No - Female History Patient is a Female of Child Bearing Age (10 -59 yrs old): No - Triage Comment ED Triage Comment: 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 PT ALSO DEVELOPED RASH AROUND MOUTH Family Medical History - Family History Father Family History: Unknown Living Status: Hx Family Asthma: No Hx Family Congestive Heart Failure: Yes Hx Family Hypertension: Yes Hx Family Stroke: No Hx Cardiac Disease: Yes Hx Family Diabetes: Yes Hx Family Cancer: Yes - prostate cancer Hx Family;Other: Parkinson's Mother Family History: No Known Physical Exam - Physical Exam General Appearance: Alert, Anxious, Well Developed, Well Groomed, Well Hydrated, Well Nourished Eye Exam: bilateral normal Ears, Nose, Throat: hearing grossly normal, normal ENT inspection Neck: non-tender, full range of motion, supple Respiratory: chest non-tender, lungs clear, normal breath sounds, no respiratory distress, no accessory muscle use Cardiovascular/Chest: normal peripheral pulses, regular rate, rhythm, no edema, no gallop, no JVD, no murmur Peripheral Pulses: radial,right: 2+, radial,left: 2+ Gastrointestinal/Abdominal: normal bowel sounds, non tender, soft Back Exam: no CVA tenderness, no vertebral tenderness, muscle spasm - On the right lumbar area. Extremity: normal range of motion, non-tender, normal inspection Neurologic: judge clerk II-XII nml as tested, no motor/sensory deficits, alert, normal mood/affect, oriented x 3 Skin Exam: normal color, warm/dry Lymphatic: no adenopathy Progress - Progress Progress: Differential diagnosis: Lumbar radiculopathy, lumbar slipped disc, malingering, facial rash among others. 02/03/20 03:10 Patient is improved after the IM Toradol. Plan on discharge home with prescription for muscle relaxers and pain meds. I discussed this plan of care with the patient he voices understanding and agreement. Mehrdad Porter M.D. #[id number] Departure - Departure Clinical Impression: Lumbar radiculopathy, acute, Facial rash Lumbar back sprain Qualifiers: Encounter type: initial encounter Qualified Code(s): S33.5XXA - Sprain of ligaments of lumbar spine, initial encounter Time of Disposition: 03:12 Disposition: Discharge to Home or Self Care Condition: Fair Departure Forms: ED Discharge - Pt. Copy, Patient Portal Self Enrollment Instructions: DI for Low Back Pain, Radiculopathy (DC), Low Back Pain (DC), Skin Rash (DC) Diet: resume usual diet Activity: increase activity as tolerated Referrals: Nakul Torres MD [Primary Care Provider] - 1-5 Days Prescriptions: Cyclobenzaprine HCl [Flexeril] 10 mg PO TID #15 tab Acetaminophen W/ Codeine [Tylenol W/ CODEINE #3] 1 tablet PO Q6H #12 ea Home Medications: Ambulatory Orders Atorvastatin Calcium [Lipitor] 20 mg PO BEDTIME 11/10/17 Citalopram Hydrobromide [Citalopram] 20 mg PO DAILY 11/10/17 Clopidogrel Bisulfate [Plavix] 75 mg PO DAILY 11/10/17 Hydroxyzine Pamoate 25 mg PO BID 11/10/17 Insulin Degludec [Tresiba Flextouch] 70 unit SC BID 11/10/17 Propranolol HCl [Propranolol Hydrochloride] 10 mg PO TID 11/10/17 traZODone HCL [Desyrel] 200 mg PO BEDTIME 11/10/17 Aspirin [Aspirin Low Strength] 81 mg PO DAILY 04/03/18 Furosemide 40 mg PO DAILY 12/19/19 Insulin Lispro [Humalog] 12 units SC AC 12/19/19 Nitroglycerin 0.4 mg Tab [Nitrostat] 1 ea SL Q5MIN PRN 12/19/19 Potassium Chloride [Potassium Chloride ER] 10 meq PO DAILY 12/19/19 Acetaminophen W/ Codeine [Tylenol W/ CODEINE #3] 1 tablet PO Q6H #12 ea 02/03/20 Cyclobenzaprine HCl [Flexeril] 10 mg PO TID #15 tab 02/03/20 Dulaglutide [Trulicity] 1.5 mg SC WKLY 02/03/20 Sertraline HCl [Zoloft] 100 mg PO DAILY 02/03/20 hydrOXYzine HCl [Atarax] 50 mg PO BEDTIME 02/03/20
[2020-02-03 03:21] VITALS: BP 119/83
== END 2020-02-03 03:27 | disposition home or self-care (01) ==
LOC: ER 02:07
DX: S33.5XXA Sprain of ligaments of lumbar spine, initial encounter (principal); M54.16 Radiculopathy, lumbar region; R21 Rash and other nonspecific skin eruption; I50.9 Heart failure, unspecified; I11.0 Hypertensive heart disease with heart failure; E11.9 Type 2 diabetes mellitus without complications; I25.2 Old myocardial infarction; J44.9 Chronic obstructive pulmonary disease, unspecified; X58.XXXA Exposure to other specified factors, initial encounter; Y92.9 Unspecified place or not applicable; Z79.4 Long term (current) use of insulin; Z79.02 Long term (current) use of antithrombotics/antiplatelets; Z79.899 Other long term (current) drug therapy; Z88.2 Allergy status to sulfonamides; Z88.5 Allergy status to narcotic agent; Z88.0 Allergy status to penicillin; Z87.891 Personal history of nicotine dependence

== ENCOUNTER 2020-02-11 05:30 | Day surgery (SDC) | payer MEDICARE, MEDICAID ==
[2020-02-11] MEDS ORDERED: LIDOCAINE 1% 10 ML VIAL INJ ONE ×3 (07:27→09:26)
[2020-02-11] MEDS ORDERED: BUPIVACAINE 0.5% 30 ML VIAL INJ ONE ×3 (07:27→09:26)
[2020-02-11] MEDS ORDERED: BETAMETHASONE ACETATE/BETAMETH 6 MG/ML VIAL IM ONE ×3 (07:51→09:26)
[2020-02-11] MEDS ORDERED: DEXAMETHASONE INJ 10 MG/ML VIAL ONE (07:59)
== END 2020-02-11 09:42 | disposition home or self-care (01) ==
LOC: AMB 05:30
PROVIDERS: ATTEND Family Medicine Sports Medicine
DX: M25.552 Pain in left hip (principal); E78.5 Hyperlipidemia, unspecified; I10 Essential (primary) hypertension; I25.2 Old myocardial infarction; G47.30 Sleep apnea, unspecified; G43.909 Migraine, unspecified, not intractable, without status migrainosus; Z88.1 Allergy status to other antibiotic agents; Z88.0 Allergy status to penicillin; Z88.2 Allergy status to sulfonamides; Z88.8 Allergy status to other drugs, medicaments and biological substances; Z95.5 Presence of coronary angioplasty implant and graft; Z79.4 Long term (current) use of insulin; Z79.82 Long term (current) use of aspirin; Z79.899 Other long term (current) drug therapy

== ENCOUNTER 2020-02-25 05:35 | Day surgery (SDC) | payer MEDICARE, MEDICAID ==
[2020-02-25] MEDS ORDERED: LIDOCAINE 1% 10 ML VIAL INJ ONE ×3 (07:12→08:00)
[2020-02-25] MEDS ORDERED: BETAMETHASONE ACETATE/BETAMETH 6 MG/ML VIAL IM ONE ×3 (07:12→08:00)
[2020-02-25] MEDS ORDERED: BUPIVACAINE 0.5% 30 ML VIAL INJ ONE ×3 (07:13→08:00)
== END 2020-02-25 08:19 | disposition home or self-care (01) ==
LOC: AMB 05:35
PROVIDERS: ATTEND Family Medicine Sports Medicine
DX: M46.1 Sacroiliitis, not elsewhere classified (principal); M25.552 Pain in left hip; M47.816 Spondylosis without myelopathy or radiculopathy, lumbar region; E78.5 Hyperlipidemia, unspecified; J44.9 Chronic obstructive pulmonary disease, unspecified; I25.2 Old myocardial infarction; G47.30 Sleep apnea, unspecified; E11.9 Type 2 diabetes mellitus without complications; Z95.5 Presence of coronary angioplasty implant and graft; Z99.81 Dependence on supplemental oxygen; Z88.0 Allergy status to penicillin; Z88.5 Allergy status to narcotic agent; Z88.2 Allergy status to sulfonamides; Z79.02 Long term (current) use of antithrombotics/antiplatelets; Z79.82 Long term (current) use of aspirin; Z79.51 Long term (current) use of inhaled steroids; Z79.899 Other long term (current) drug therapy

== ENCOUNTER → 2020-04-09 | Outpatient (CLI) | payer MEDICARE, MEDICAID ==
--- NOTE | 2020-04-09 11:00 | CT ---
EXAM DESCRIPTION: Head CLINICAL HISTORY: migraine without aura COMPARISON: 04/13/2017 TECHNIQUE: Multiple axial images of the head without contrast. Multiplanar reformatted images. This exam was performed according to our departmental dose-optimization program, which includes automated exposure control, adjustment of the mA and/or kV according to patient size and/or use of iterative reconstruction technique. FINDINGS: Moderately degraded image quality secondary to motion artifact. This limits evaluation. No definite CT evidence of intracranial hemorrhage, mass effect, or large territory infarction. Moderate generalized volume loss. Moderate patchy supratentorial white matter hypodensities. No definite abnormal extra-axial fluid collections. Calcific plaque in the visualized arteries. There is no acute calvarial defect. The visualized paranasal sinuses and the mastoids are clear. IMPRESSION: 1. Motion limited exam, but no definitive CT evidence of an acute intracranial abnormality identified. If there is concern for an acute or subacute infarct, consider follow-up MRI. 2. Mild senescent changes. Electronically signed by: Chicho Araiza MD 04/09/2020 10:59 AM [facility]
== END ==
LOC: CT 10:25
PROVIDERS: ATTEND Family Medicine
DX: G43.009 Migraine without aura, not intractable, without status migrainosus (principal); G31.1 Senile degeneration of brain, not elsewhere classified